=== PATIENT | male | born 1960 | race Caucasian/White ===

== ENCOUNTER 2020-01-04 09:08 | Outpatient (REF) | payer BC, SELFPAY ==
[2020-01-04 10:11] LABS: MANUAL DIFF FLAG NO
[2020-01-04 10:25] LABS: Basophils Percent Auto 0.6 % (0-2); Eosinophils Absolute Auto 0.2 X10*3/uL (0.0-0.4); Eosinophils Percent Auto 3.6 % (0-4); Hematocrit 47.1 % (42-52); Hemoglobin 15.9 g/dl (14.0-18.0); Imm Gran Abs Auto 0.01 X10*3/uL (0.00-0.03); Imm Gran Pct Auto 0.2 % (0.0-0.4); Lymphocytes Absolute Auto 1.3 X10*3/uL (1.2-4.9); Lymphocytes Percent Auto 27.9 % (20-40); Mean Corpuscular HGB Conc 33.8 g/dl (31.0-36.0); Mean Corpuscular Hemoglobin 31.4 pg (27.0-33.0); Mean Corpuscular Volume 92.9 fL (80-98); Monocytes Absolute Auto 0.4 X10*3/uL (0.1-1.2); Monocytes Percent Auto 9.2 % (2-11); Neutrophils Absolute Auto 2.8 X10*3/uL (2.0-8.3); Neutrophils Percent Auto 58.5 % (45-73); Platelet Count 158 X10*3/uL (160-400); Red Blood Count 5.07 X10*6/uL (4.60-5.80); Red Cell Distribution Width 12.4 % (11.0-16.0); White Blood Count 4.8 X10*3/uL (4.8-10.8)
[2020-01-04 11:00] LABS: Alanine Aminotransferase 46 U/L (0-40); Albumin Level 4.4 g/dL (3.5-5.0); Alkaline Phosphatase 64 U/L (39-117); Anion Gap 10 (12-20); Aspartate Amino Transferase 25 U/L (5-37); Blood Urea Nitrogen 13 mg/dL (9-16); Calcium 8.8 mg/dL (8.4-10.2); Carbon Dioxide 30 mmol/L (22-29); Chloride 105 mmol/L (96-108); Cholesterol 149 mg/dL; Estimated Glomerular Filt Rate > 60; Glucose Fasting 83 mg/dL (60-99); HDL Cholesterol 48 mg/dL; LDL Cholesterol Calculated 75 mg/dl; Potassium 4.3 mmol/l (3.3-5.1); Sodium 141 mmol/L (135-145); Total Protein 6.6 g/dL (6.5-8.0); Triglycerides 132 mg/dL
[2020-01-04 11:24] LABS: Free T4 (Free Thyroxine) 1.33 ng/dL (0.71-1.85); Thyroid Stimulating Hormone 0.24 uIU/mL (0.32-4.0)
== END 2020-01-04 09:09 | disposition home or self-care (01) ==
LOC: HO.10HDL 09:08
PROVIDERS: Visit Provider Internal Medicine
DX: E78.00 Pure hypercholesterolemia, unspecified (principal); E03.9 Hypothyroidism, unspecified
CPT/HCPCS: 36415; 80053; 80061; 84439; 84443; 85025

== ENCOUNTER 2020-05-26 06:14 | Outpatient (REF) | payer OTHER, SELFPAY ==
[2020-05-26 08:17] LABS: MANUAL DIFF FLAG NO
[2020-05-26 08:36] LABS: Basophils Percent Auto 0.7 % (0-2); Eosinophils Absolute Auto 0.2 X10*3/uL (0.0-0.4); Eosinophils Percent Auto 4.3 % (0-4); Hematocrit 46.7 % (42-52); Hemoglobin 15.6 g/dl (14.0-18.0); Imm Gran Abs Auto 0.01 X10*3/uL (0.00-0.03); Imm Gran Pct Auto 0.2 % (0.0-0.4); Lymphocytes Absolute Auto 1.6 X10*3/uL (1.2-4.9); Lymphocytes Percent Auto 30.5 % (20-40); Mean Corpuscular HGB Conc 33.4 g/dl (31.0-36.0); Mean Corpuscular Hemoglobin 31.4 pg (27.0-33.0); Mean Platelet Volume 10.5 fL (9.4-12.4); Monocytes Absolute Auto 0.5 X10*3/uL (0.1-1.2); Monocytes Percent Auto 8.6 % (2-11); Neutrophils Percent Auto 55.7 % (45-73); Platelet Count 188 X10*3/uL (160-400); Red Blood Count 4.97 X10*6/uL (4.60-5.80); Red Cell Distribution Width 12.4 % (11.0-16.0); White Blood Count 5.4 X10*3/uL (4.8-10.8)
[2020-05-26 08:57] LABS: Alanine Aminotransferase 41 U/L (0-40); Albumin Level 4.4 g/dL (3.5-5.0); Alkaline Phosphatase 66 U/L (39-117); Anion Gap 12 (12-20); Aspartate Amino Transferase 24 U/L (5-37); Blood Urea Nitrogen 17 mg/dL (9-16); Calcium 8.8 mg/dL (8.4-10.2); Carbon Dioxide 29 mmol/L (22-29); Chloride 107 mmol/L (96-108); Cholesterol 159 mg/dL; Estimated Glomerular Filt Rate > 60; Glucose Fasting 89 mg/dL (60-99); HDL Cholesterol 45 mg/dL; LDL Cholesterol Calculated 91 mg/dl; Potassium 4.4 mmol/L (3.3-5.1); Sodium 144 mmol/L (135-145); Total Protein 6.7 g/dL (6.5-8.0); Triglycerides 115 mg/dL
[2020-05-26 09:07] LABS: Free T4 (Free Thyroxine) 1.03 ng/dL (0.71-1.85); Thyroid Stimulating Hormone 0.91 uIU/mL (0.32-4.0)
== END 2020-05-26 06:15 | disposition home or self-care (01) ==
LOC: HO.LAB 06:14
PROVIDERS: PCP Internal Medicine; Visit Provider Internal Medicine
DX: I25.10 Atherosclerotic heart disease of native coronary artery without angina pectoris (principal); E78.00 Pure hypercholesterolemia, unspecified; E03.9 Hypothyroidism, unspecified
CPT/HCPCS: 36415; 80053; 80061; 84439; 84443; 85025

== ENCOUNTER 2020-09-30 23:54 | Emergency (ER) | payer OTHER, SELFPAY ==
--- NOTE | ~2020-09-30 | CT_ITS ---
EXAMINATION: CT ABDOMEN AND PELVIS WITHOUT CONTRAST CLINICAL INFORMATION: Left flank pain COMPARISON: None TECHNIQUE: Multidetector volumetric imaging was performed from the superior aspect of the liver through the pubic symphysis. Sagittal and coronal reformatted images were obtained on the technologist's workstation. This CT examination was performed using dose optimization techniques as appropriate, variously including the following: *Automated exposure control *Adjustment of mA and/or kV according to patient size (this includes techniques or standardized protocols for targeted exams where dose is matched to indication/reason for exam; i.e. extremities or head) *Use of iterative reconstruction technique DLP: 546 mGy-cm FINDINGS: LUNG BASES: The visualized lung bases are unremarkable. LIVER, GALLBLADDER, AND BILIARY TREE: The liver is normal in size, shape, and attenuation. No focal hepatic lesion or biliary ductal dilatation is present. The gallbladder is unremarkable with no evidence of radiopaque gallstones, gallbladder wall thickening, or obvious pericholecystic inflammatory changes. PANCREAS: Unremarkable. SPLEEN: Unremarkable. ADRENAL GLANDS: Unremarkable. KIDNEYS AND URETERS: Mild left pelviectasis and perinephric stranding mild left hydroureter leading up to the bladder. No urinary calculi. Right kidney unremarkable. BLADDER: Unremarkable. GASTROINTESTINAL TRACT: The small and large bowel are unremarkable. The appendix is unremarkable. ABDOMINAL WALL: No significant hernia is appreciated. LYMPH NODES: Normal. VASCULAR: Unremarkable. PELVIC VISCERA: Unremarkable. OSSEOUS STRUCTURES: Unremarkable. CT/CT abdomen pelvis wo con IMPRESSION: Mild left pelviectasis and hydroureter associated with mild peripelvic and periureteral fat stranding. No urinary calculi are identified. Suspect recently passed stone. From an imaging standpoint alone, ureteritis/pyelitis could also have this appearance. This critical result was discussed with Jennifer Ventura NP at 10/01/2020 12:47 AM and it was ascertained that the content and urgency of the report was understood at the time of direct communication.
--- NOTE | 2020-10-01 00:06 | ED_ITS ---
HPI - Abdominal Pain General Chief Complaint: Abdominal Pain Stated Complaint: left flank pain Source: patient and EMS Mode of arrival: EMS Limitations: no limitations History of Present Illness HPI narrative: 60-year-old male with past medical history of triple bypass presents via EMS for 10/10 left-sided flank pain. States the pain started at 9:00 p.m., he became diaphoretic, and felt almost syncopal. Stated that when he got here that the pain drastically decreased from 10 to 4/10 pain. He does not have a prior history of kidney stones, does not report fevers, chills, chest pain or pressure, palpitations, abdominal distention, dysuria, nausea, vomiting, diarrhea, constipation, or edema. MD elicited complaint: abdominal pain and flank pain Onset (ago): hour(s) (Several hours prior to arrival) Pain Consistency: constant Location: L flank Severity: severe Pain scale (0-10): 10 Quality: stabbing, aching and sharp Radiation: none Migration to: no migration Exacerbating factors: movement Relieving factors: nothing Associated symptoms: denies other symptoms Related Data Previous Rx's Medication Instructions Recorded phenazopyridine 200 mg tablet 200 mg PO TID PRN #6 tab 10/01/20 (Pyridium) Allergies Allergy/AdvReac Type Severity Reaction Status Date / Time penicillin V Allergy Unknown Rash Verified 10/01/20 00:17 acetaminophen [From Percocet] AdvReac Vomiting Verified 10/01/20 00:17 oxycodone [From Percocet] AdvReac Vomiting Verified 10/01/20 00:17 Review of Systems Review of Systems Constitutional: No Fever, No Chills ENT/Mouth: No sore throat Eyes: No Eye Pain, No Swelling, No Redness Cardiovascular: No Chest Pain, No SOB Respiratory: No Cough, No Sputum, No Wheezing Gastrointestinal: No Nausea, positive Vomiting, No Diarrhea, no abdominal pain Genitourinary: No Dysuria, no urinary frequency, positive Hematuria, positive Flank Pain, no hesitancy Musculoskeletal: No joint pain, No Myalgias Skin: No Skin Lesions, No rash Neuro: No Weakness, No Numbness, No Headache Psych: No Anxiety/Panic, No Depression Heme/Lymph: No Bruising, No Lymphadenopathy Endocrine: No Polyuria, No Polydipsia Yes all other systems are reviewed and are negative Physical Exam Vital Signs: Vital Signs: Last Vital Signs Temp 97.7 F 10/01/20 00:11 Pulse 84 10/01/20 00:11 Resp 18 10/01/20 00:11 BP 126/75 10/01/20 00:11 Pulse Ox 98 10/01/20 00:11 Body Mass Index 23.7 Appearance: Alert. Oriented X3. Mild distress. Eyes: Pupils equal, round and reactive to light. Sclera nonicteric ENT: Pharynx normal. Moist mucous membranes Neck: Normal inspection. Neck supple. CVS: Normal heart rate and rhythm. Pulses normal. Respiratory: No respiratory distress. Breath sounds normal. Abdomen: Soft and nontender. Positive CVA tenderness to left side. Skin: Skin warm and dry. Normal skin color. Normal skin turgor. Extremities: No lower extremity edema. Moves all extremities against resistance. Neuro: No motor deficit. No sensory deficit. Cranial nerves 2-12 intact. Course Course Course Narrative: 60-year-old male presents with 10/10 left flank pain. Started at 9:00 p.m.. No history of kidney stones. Stated that once he got to this facility via EMS that the pain decreased suddenly from 10 to 4/10. Patient's urine is dark, appears to have heme. Physical exam positive for left-sided CVA tenderness. High suspicion for kidney stone, less likely to be acute abdomen as abdominal palpation is negative. Will give fluids, and Toradol. CT scan of abdomen pending. 12:47 discussion with Radiology, high suspicion for a passed kidney stone, will correlate with labs and urinalysis. No indication of pyelonephritis or sepsis at this time. Most likely a passed kidney stone. Will give Pyridium for bladder spasms. Will have patient follow- up with primary care. Patient verbalized understanding of and agrees to plan of care discharge home. MDM - Abdominal Pain Differential Diagnosis Differential diagnosis: Likely abdominal pain, acute appendicitis, calculus of kidney and renal colic Medical Records Attestation: I reviewed the patient's medical records. Lab Data Attestation: I reviewed the patient's lab results. Result diagrams: 10/01/20 00:24 10/01/20 00:24 Labs: Lab Results 10/01/20 10/01/20 10/01/20 Range/Units 00:24 00:24 01:29 WBC 7.1 (4.8-10.8) X10*3/uL RBC 4.49 L (4.60-5.80) X10*6/uL Hgb 14.2 (14.0-18.0) g/dl Hct 41.7 L (42-52) % MCV 92.9 (80-98) fL MCH 31.6 (27.0-33.0) pg MCHC 34.1 (31.0-36.0) g/dl RDW 12.5 (11.0-16.0) % Plt Count 151 L (160-400) X10*3/uL MPV 10.5 (9.4-12.4) fL Immature Gran % (Auto) 0.4 (0.0-0.4) % Neut % (Auto) 83.0 H (45-73) % Lymph % (Auto) 10.7 L (20-40) % [place] % (Auto) 4.6 (2-11) % Eos % (Auto) 1.0 (0-4) % Baso % (Auto) 0.3 (0-2) % Lymph # (Auto) 0.8 L (1.2-4.9) X10*3/uL [place] # (Auto) 0.3 (0.1-1.2) X10*3/uL Eos # (Auto) 0.1 (0.0-0.4) X10*3/uL Baso # (Auto) 0.0 (0.0-0.2) X10*3/uL Abs Immat Gran (auto) 0.03 (0.00-0.03) X10*3/uL Absolute Neuts (auto) 5.9 (2.0-8.3) X10*3/uL Absolute Nucleated RBC 0.000 (0.0-0.012) X10*3/uL Nucleated RBC % (auto) 0.0 (0.0-0.2) /100WBC Sodium 141 (135-145) mmol/L Potassium 3.9 (3.3-5.1) mmol/L Chloride 105 (96-108) mmol/L Carbon Dioxide 27 (22-29) mmol/L Anion Gap 13 (12-20) BUN 13 (9-16) mg/dL Creatinine 1.09 (0.5-1.4) mg/dL Estim Creat Clear Calc 76.7 Estimated GFR > 60 Random Glucose 99 (60-115) mg/dL Calcium 9.1 (8.4-10.2) mg/dL Urine Color YELLOW Urine Appearance HAZY Urine pH 5.5 (5.0-8.0) Ur Specific [place] >= 1.030 H (1.005-1.025) Urine Protein 1+ H (NEG-TRACE) MG/DL Urine Glucose (UA) NEG (NEG) MG/DL Urine Ketones 5 (NEG) MG/DL Urine Blood 3+ H (NEG) Urine Nitrite NEG (NEG) Ur Leukocyte Esterase NEG (NEG) Urine RBC 76-150 H (0) /HPF Urine WBC 0-2 (0-4) /HPF Ur Squamous Epith Cells 2+ /LPF Amorphous Sediment 2+ /LPF Urine Bacteria NONE /LPF Imaging Data CT scan - abdomen: Attestation: I personally reviewed and interpreted this imaging study as follows: Radiologist's impression: FINDINGS: LUNG BASES: The visualized lung bases are unremarkable.? LIVER, GALLBLADDER, AND BILIARY TREE: The liver is normal in size, shape, and attenuation. No focal hepatic lesion or biliary ductal dilatation is present. The gallbladder is unremarkable with no evidence of radiopaque gallstones, gallbladder wall thickening, or obvious pericholecystic inflammatory changes.? PANCREAS: Unremarkable.? SPLEEN: Unremarkable.? ADRENAL GLANDS: Unremarkable.? KIDNEYS AND URETERS: Mild left pelviectasis and perinephric stranding mild left hydroureter leading up to the bladder. No urinary calculi. Right kidney unremarkable.? BLADDER: Unremarkable.? GASTROINTESTINAL TRACT: The small and large bowel are unremarkable. The appendix is unremarkable.? ABDOMINAL WALL: No significant hernia is appreciated.? LYMPH NODES: Normal. VASCULAR: Unremarkable. PELVIC VISCERA: Unremarkable.? OSSEOUS STRUCTURES: Unremarkable.? CT/CT abdomen pelvis wo con IMPRESSION: Mild left pelviectasis and hydroureter associated with mild peripelvic and periureteral fat stranding. No urinary calculi are identified. Suspect recently passed stone. From an imaging standpoint alone, ureteritis/pyelitis could also have this appearance.? ? This critical result was discussed with Jennifer Ventura NP at 10/01/2020 12:47 AM and it was ascertained that the content and urgency of the report was understood at the time of direct communication. Discharge Plan Discharge Clinical Impression: Kidney stone on left side Patient Disposition: Home, Self-Care Instructions: Kidney Stones (ED), Flank Pain (ED) Additional Instructions: You were evaluated for left-sided flank pain. CT scan of the abdomen indicates it is findings suspicious for recently passed kidney stone. Urinalysis was negative for bacteria positive for hematuria, again consistent with kidney stone. Please take Pyridium as needed for bladder spasms and pain. If you are unable to void, this may indicate a blockage in the urethra. Please return to the emergency department for evaluations if you are unable to pass urine. Thank you for choosing this emergency department for evaluation. Please follow-up with primary care physician as needed. Return to the emergency department for any new, concerning, or worsening symptoms. Prescriptions: New phenazopyridine [Pyridium] 200 mg tablet 200 mg PO TID PRN (Reason: pain) Qty: 6 RF: 0 PMFSH Past Medical History Attestation statement: The following information was validated with the patient. Source: old records reviewed Medical History (Updated 10/01/20 @ 01:54 by Jennifer Ventura NP) Herniated disc HTN (hypertension) Surgical History H/O heart surgery Social History Social History Advance Directives: No
[2020-10-01 00:11] VITALS: BP 126/75; PULSE 84; RESP 18; TEMP 36.5; O2SAT 98; BMI 23.7
[2020-10-01 00:15] VITALS: BP 140/70; PULSE 70; O2SAT 98
[2020-10-01 00:43] LABS: MANUAL DIFF FLAG NO
[2020-10-01 00:44] LABS: Basophils Percent Auto 0.3 % (0-2); Eosinophils Absolute Auto 0.1 X10*3/uL (0.0-0.4); Hematocrit 41.7 % (42-52); Hemoglobin 14.2 g/dl (14.0-18.0); Imm Gran Abs Auto 0.03 X10*3/uL (0.00-0.03); Imm Gran Pct Auto 0.4 % (0.0-0.4); Lymphocytes Absolute Auto 0.8 X10*3/uL (1.2-4.9); Lymphocytes Percent Auto 10.7 % (20-40); Mean Corpuscular HGB Conc 34.1 g/dl (31.0-36.0); Mean Corpuscular Hemoglobin 31.6 pg (27.0-33.0); Mean Corpuscular Volume 92.9 fL (80-98); Mean Platelet Volume 10.5 fL (9.4-12.4); Monocytes Absolute Auto 0.3 X10*3/uL (0.1-1.2); Monocytes Percent Auto 4.6 % (2-11); Neutrophils Absolute Auto 5.9 X10*3/uL (2.0-8.3); Platelet Count 151 X10*3/uL (160-400); Red Blood Count 4.49 X10*6/uL (4.60-5.80); Red Cell Distribution Width 12.5 % (11.0-16.0); White Blood Count 7.1 X10*3/uL (4.8-10.8)
[2020-10-01 01:08] LABS: Anion Gap 13 (12-20); Blood Urea Nitrogen 13 mg/dL (9-16); Calcium 9.1 mg/dL (8.4-10.2); Carbon Dioxide 27 mmol/L (22-29); Chloride 105 mmol/L (96-108); Creatinine Clr Calc Pharmacy 76.7; Estimated Glomerular Filt Rate > 60; Glucose Random 99 mg/dL (60-115); Potassium 3.9 mmol/L (3.3-5.1); Sodium 141 mmol/L (135-145)
[2020-10-01] MEDS: 0.9 % Sodium Chloride 1,000 ML 999 ML IVCONT (01:30)
[2020-10-01 01:40] LABS: Appearance Urine HAZY; Color Urine YELLOW; Glucose Urine UA NEG (NEG); Leukocyte Esterase Urine NEG (NEG); Nitrite Urine NEG (NEG); PH 5.5 (5.0-8.0); Specific Gravity - Urine >= 1.030 (1.005-1.025); UACC Culture Trigger NO; Urine Blood 3+ (NEG); Urine Ketones 5 MG/DL (NEG); Urine Protein 1+ MG/DL (NEG-TRACE)
[2020-10-01 02:02] LABS: Amorphous Sediment Urine 2+ /LPF; Squamous Epithelial Cell Urine 2+ /LPF; WBC Urine 0-2 /HPF (0-4)
[2020-10-01] MEDS: Phenazopyridine HCL 200 MG TABLET PO (02:29)
== END 2020-10-01 02:48 | disposition home or self-care (01) ==
PROVIDERS: Nurse Practitioner Family; Emergency Provider Emergency Medicine; PCP Internal Medicine
DX: N20.0 Calculus of kidney (principal); I10 Essential (primary) hypertension
CPT/HCPCS: 36415; 74176; 80048; 81001; 85025; 96361; 96374; 99283; 99284

== ENCOUNTER 2021-01-24 09:46 | Outpatient (REF) | payer OTHER, SELFPAY ==
[2021-01-24 10:21] LABS: MANUAL DIFF FLAG NO
[2021-01-24 10:25] LABS: Basophils Percent Auto 0.7 % (0-2); Eosinophils Absolute Auto 0.1 X10*3/uL (0.0-0.4); Eosinophils Percent Auto 2.3 % (0-4); Hematocrit 46.5 % (42.0-52.0); Hemoglobin 15.3 g/dl (14.0-18.0); Imm Gran Abs Auto 0.01 X10*3/uL (0.00-0.03); Imm Gran Pct Auto 0.2 % (0.0-0.4); Lymphocytes Absolute Auto 1.2 X10*3/uL (1.2-4.9); Lymphocytes Percent Auto 21.9 % (20-40); Mean Corpuscular HGB Conc 32.9 g/dl (31.0-36.0); Mean Corpuscular Hemoglobin 31.2 pg (27.0-33.0); Mean Corpuscular Volume 94.7 fL (80.0-98.0); Mean Platelet Volume 10.8 fL (9.4-12.4); Monocytes Absolute Auto 0.5 X10*3/uL (0.1-1.2); Neutrophils Absolute Auto 3.8 x10*3/uL (2.0-8.3); Neutrophils Percent Auto 66.9 % (45-73); Platelet Count 148 X10*3/uL (160-400); Red Blood Count 4.91 X10*6/uL (4.60-5.80); Red Cell Distribution Width 12.3 % (11.0-16.0); White Blood Count 5.6 X10*3/uL (4.8-10.8)
[2021-01-24 10:58] LABS: Alanine Aminotransferase 29 U/L (0-40); Albumin Level 4.5 g/dL (3.5-5.0); Alkaline Phosphatase 68 U/L (39-117); Anion Gap 9 (12-20); Aspartate Amino Transferase 22 U/L (5-37); Bilirubin Total 0.6 mg/dL (0.0-1.0); Blood Urea Nitrogen 11 mg/dL (9-16); Calcium 9.7 mg/dL (8.4-10.2); Carbon Dioxide 31 mmol/L (22-29); Chloride 106 mmol/L (96-108); Estimated Glomerular Filt Rate > 60; Glucose Fasting 90 mg/dL (60-99); Potassium 4.3 mmol/L (3.3-5.1); Sodium 142 mmol/L (135-145); Total Protein 6.7 g/dL (6.5-8.0)
[2021-01-24 11:20] LABS: Prostate Specific Antigen Scr 3.28 ng/mL (<0.05-4.0)
[2021-01-24 13:40] LABS: Appearance Urine CLEAR; Color Urine YELLOW; Glucose Urine UA NEG (NEG); Leukocyte Esterase Urine NEG (NEG); Nitrite Urine NEG (NEG); Urine Blood NEG (NEG); Urine Ketones NEG (NEG); Urine Protein NEG (NEG-TRACE)
== END 2021-01-24 09:47 | disposition home or self-care (01) ==
LOC: HO.10HDL 09:46
PROVIDERS: Visit Provider Internal Medicine
DX: Z00.00 Encounter for general adult medical examination without abnormal findings (principal); Z12.5 Encounter for screening for malignant neoplasm of prostate
CPT/HCPCS: 36415; 80053; 81003; 84153; 85025

== ENCOUNTER 2021-07-12 09:47 | Outpatient (REF) | payer OTHER, SELFPAY ==
[2021-07-12 10:32] LABS: MANUAL DIFF FLAG NO
[2021-07-12 10:42] LABS: Basophils Percent Auto 0.6 % (0-2); Eosinophils Absolute Auto 0.1 X10*3/uL (0.0-0.4); Eosinophils Percent Auto 2.6 % (0-4); Hematocrit 47.5 % (42.0-52.0); Hemoglobin 15.8 g/dl (14.0-18.0); Imm Gran Abs Auto 0.01 X10*3/uL (0.00-0.03); Imm Gran Pct Auto 0.2 % (0.0-0.4); Lymphocytes Absolute Auto 1.2 X10*3/uL (1.2-4.9); Lymphocytes Percent Auto 23.8 % (20-40); Mean Corpuscular HGB Conc 33.3 g/dl (31.0-36.0); Mean Corpuscular Volume 93.3 fL (80.0-98.0); Mean Platelet Volume 10.8 fL (9.4-12.4); Monocytes Absolute Auto 0.8 X10*3/uL (0.1-1.2); Neutrophils Absolute Auto 2.9 x10*3/uL (2.0-8.3); Neutrophils Percent Auto 57.8 % (45-73); Platelet Count 132 X10*3/uL (160-400); Red Blood Count 5.09 X10*6/uL (4.60-5.80); Red Cell Distribution Width 12.4 % (11.0-16.0); White Blood Count 5.1 X10*3/uL (4.8-10.8)
[2021-07-12 11:15] LABS: Alanine Aminotransferase 38 U/L (0-40); Albumin Level 4.4 g/dL (3.5-5.0); Alkaline Phosphatase 77 U/L (39-117); Anion Gap 13 (12-20); Aspartate Amino Transferase 24 U/L (5-37); Bilirubin Total 0.8 mg/dL (0.0-1.0); Blood Urea Nitrogen 13 mg/dL (9-16); Calcium 9.5 mg/dL (8.4-10.2); Carbon Dioxide 29 mmol/L (22-29); Chloride 104 mmol/L (96-108); Estimated Glomerular Filt Rate > 60; Glucose Random 60 mg/dL (60-115); Potassium 4.8 mmol/L (3.3-5.1); Sodium 141 mmol/L (135-145); Total Protein 6.8 g/dL (6.5-8.0)
[2021-07-12 11:23] LABS: Free T4 (Free Thyroxine) 1.09 ng/dL (0.71-1.85); PSA,Total (Free>4and<10) 2.99 ng/mL (0.00-4.00); Thyroid Stimulating Hormone 0.88 uIU/mL (0.32-4.0)
== END 2021-07-12 09:48 | disposition home or self-care (01) ==
LOC: HO.10HDL 09:47
PROVIDERS: Visit Provider Internal Medicine
DX: Z12.5 Encounter for screening for malignant neoplasm of prostate (principal); E03.9 Hypothyroidism, unspecified; R35.1 Nocturia; I25.10 Atherosclerotic heart disease of native coronary artery without angina pectoris
CPT/HCPCS: 36415; 80053; 84153; 84439; 84443; 85025

== ENCOUNTER 2022-07-30 07:50 | Outpatient (REF) | payer OTHER, SELFPAY ==
[2022-07-30 10:58] LABS: MANUAL DIFF FLAG NO
[2022-07-30 11:07] LABS: Appearance Urine Clear; Color Urine Yellow; Glucose Urine UA Negative (Negative); Leukocyte Esterase Urine Negative (Negative); Nitrite Urine Negative (Negative); PH 5.5 (5.0-9.0); Urine Blood Negative (Negative); Urine Ketones Negative (Negative); Urine Protein Negative (Neg-Trace)
[2022-07-30 11:22] LABS: Basophils Percent Auto 0.9 % (0-2); Eosinophils Absolute Auto 0.2 X10*3/uL (0.0-0.4); Eosinophils Percent Auto 3.9 % (0-4); Hematocrit 44.7 % (42.0-52.0); Hemoglobin 14.8 g/dl (14.0-18.0); Lymphocytes Absolute Auto 1.4 X10*3/uL (1.2-4.9); Lymphocytes Percent Auto 33.2 % (20-40); Mean Corpuscular HGB Conc 33.1 g/dl (31.0-36.0); Mean Corpuscular Hemoglobin 31.2 pg (27.0-33.0); Mean Corpuscular Volume 94.1 fL (80.0-98.0); Mean Platelet Volume 11.1 fL (9.4-12.4); Monocytes Absolute Auto 0.4 X10*3/uL (0.1-1.2); Neutrophils Absolute Auto 2.3 x10*3/uL (2.0-8.3); Platelet Count 158 X10*3/uL (160-400); Red Blood Count 4.75 X10*6/uL (4.60-5.80); Red Cell Distribution Width 12.5 % (11.0-16.0); White Blood Count 4.3 X10*3/uL (4.8-10.8)
[2022-07-30 12:14] LABS: Alanine Aminotransferase 24 U/L (0-40); Albumin Level 4.1 g/dL (3.5-5.0); Alkaline Phosphatase 67 U/L (39-117); Anion Gap 11 (12-20); Aspartate Amino Transferase 20 U/L (5-37); Bilirubin Total 0.7 mg/dL (0.0-1.0); Blood Urea Nitrogen 16 mg/dL (9-16); Calcium 9.2 mg/dL (8.4-10.2); Carbon Dioxide 30 mmol/L (22-29); Chloride 108 mmol/L (96-108); Estimated Glomerular Filt Rate > 60; Free T4 (Free Thyroxine) 1.13 ng/dL (0.71-1.85); Glucose Random 106 mg/dL (60-115); Potassium 4.1 mmol/L (3.3-5.1); Prostate Specific Antigen 3.22 ng/mL (<0.05-4.0); Sodium 145 mmol/L (135-145); Thyroid Stimulating Hormone 0.48 uIU/mL (0.32-4.0); Total Protein 6.3 g/dL (6.5-8.0)
== END 2022-07-30 07:51 | disposition home or self-care (01) ==
LOC: HO.10HDL 07:50
PROVIDERS: Visit Provider Internal Medicine
DX: Z00.00 Encounter for general adult medical examination without abnormal findings (principal); E03.9 Hypothyroidism, unspecified; Z12.5 Encounter for screening for malignant neoplasm of prostate
CPT/HCPCS: 36415; 80053; 81003; 84153; 84439; 84443; 85025

== ENCOUNTER 2023-02-15 07:39 | Outpatient (REF) | payer OTHER, SELFPAY ==
[2023-02-15 11:09] LABS: Alanine Aminotransferase 32 U/L (0-40); Albumin Level 4.4 g/dL (3.5-5.0); Alkaline Phosphatase 71 U/L (39-117); Anion Gap 12 (12-20); Aspartate Amino Transferase 28 U/L (5-37); Bilirubin Total 1.2 mg/dL (0.0-1.0); Blood Urea Nitrogen 17 mg/dL (9-16); Calcium 9.4 mg/dL (8.4-10.2); Carbon Dioxide 28 mmol/L (22-29); Chloride 106 mmol/L (96-108); Cholesterol 134 mg/dL (<200); Estimated Glomerular Filt Rate > 60; Glucose Fasting 89 mg/dL (60-99); HDL Cholesterol 52 mg/dL (>40); LDL Cholesterol Calculated 66 mg/dL (<100); Potassium 3.8 mmol/L (3.3-5.1); Sodium 142 mmol/L (135-145); Total Protein 7.1 g/dL (6.5-8.0); Triglycerides 83 mg/dL (<150)
[2023-02-15 11:21] LABS: Free T4 (Free Thyroxine) 0.95 ng/dL (0.71-1.85); Thyroid Stimulating Hormone 0.94 uIU/mL (0.32-4.0)
== END 2023-02-15 07:40 | disposition home or self-care (01) ==
LOC: HO.10HDL 07:39
PROVIDERS: Visit Provider Internal Medicine
DX: I25.10 Atherosclerotic heart disease of native coronary artery without angina pectoris (principal); I10 Essential (primary) hypertension; E78.00 Pure hypercholesterolemia, unspecified; E03.9 Hypothyroidism, unspecified
CPT/HCPCS: 36415; 80053; 80061; 84439; 84443

== ENCOUNTER 2023-06-12 07:46 | Outpatient (REF) | payer OTHER, SELFPAY ==
[2023-06-12 11:20] LABS: Anion Gap 10 (12-20); Blood Urea Nitrogen 14 mg/dL (9-16); Calcium 9.1 mg/dL (8.4-10.2); Carbon Dioxide 29 mmol/L (22-29); Chloride 107 mmol/L (96-108); Estimated Glomerular Filt Rate > 60; Glucose Random 113 mg/dL (60-115); Potassium 3.8 mmol/L (3.3-5.1); Sodium 142 mmol/L (135-145)
[2023-06-12 11:32] LABS: Prostate Specific Antigen Scr 4.16 ng/mL (<0.05-4.0)
== END 2023-06-12 07:47 | disposition home or self-care (01) ==
LOC: HO.10HDL 07:46
PROVIDERS: Visit Provider Internal Medicine
DX: Z12.5 Encounter for screening for malignant neoplasm of prostate (principal); I25.10 Atherosclerotic heart disease of native coronary artery without angina pectoris; R35.1 Nocturia
CPT/HCPCS: 36415; 80048; 84153

== ENCOUNTER 2023-08-21 07:38 | Outpatient (REF) | payer OTHER, SELFPAY ==
[2023-08-21 11:17] LABS: PSA,Total (Free>4and<10) 4.23 ng/mL (0.00-4.00)
[2023-08-22 11:03] LABS: Free Prostate Spec Ag 0.8 ng/mL; Percent Free Prostate Spec Ag 19 % (calc) (>25); Prostate Specific Ag Total 4.2 ng/mL (< OR = 4.0)
== END 2023-08-21 07:39 | disposition home or self-care (01) ==
LOC: HO.10HDL 07:38
PROVIDERS: Visit Provider Internal Medicine
DX: R97.20 Elevated prostate specific antigen [PSA] (principal); Z12.5 Encounter for screening for malignant neoplasm of prostate
CPT/HCPCS: 36415; 84153; 84154

== ENCOUNTER 2023-08-22 09:03 | Outpatient (AMB) | payer OTHER, SELFPAY ==
--- NOTE | 2023-08-22 09:08 | MHC.OFFVIS ---
Intake Visit Reasons: elevated PSA Intake Note: Jh is a 63 year old male who presents today as a new patient for a evaluation for his elevated PSA. Allergies penicillin V Allergy (Unknown, Verified 08/22/23 09:09) Rash acetaminophen [From Percocet] Adverse Reaction (Verified 08/22/23 09:09) Vomiting oxycodone [From Percocet] Adverse Reaction (Verified 08/22/23 09:09) Vomiting Medication List - Last Reconciled 08/22/23 by Chapincito Hernandez MD aspirin 81 mg PO DAILY atorvastatin 80 mg PO DAILY levothyroxine (Synthroid) 100 mcg PO DAILY losartan 12.5 mg PO DAILY HPI Comments Details: Jh is here for evaluation for elevated PSA, he states his father had prostate cancer and had radiation therapy. PMH - CAD, takes aspirin daily. He denies LUTS. I have discussed that elevated PSA may indicate changes in the prostate including benign enlargement, cancer and an inflammatory condition. I have discussed doing a biopsy has risks and that management in early detection of prostate cancer may include active surveillance. Discussed Transrectal Ultrasound guided biopsy of the prostate. Discussed risks to include but not limited to pain, blood in stool, urine and semen, septicemia, need to repeat biopsy. Pt declined prostate exam. PSA--07/12/2021--2.99, 07/30/2022--3.22, 06/07/23--4.16, 08/21/2023--4.23 Plan schedule prostate biopsy with Dr. Delcid. [facility] Medical History HTN (hypertension) Herniated disc Surgical History H/O heart surgery Review of Systems Const All systems reviewed & are unremarkable except as noted in HPI and below Reports no additional complaints Eyes Reports no additional complaints ENT Reports no additional complaints Card Reports no additional complaints Resp Reports no additional complaints GI Reports no additional complaints Reports as per HPI Musc Reports no additional complaints Skin/Breast Reports system reviewed and no additional complaints, except as documented Neuro Reports no additional complaints Psych Reports no additional complaints Endo Reports no additional complaints Ryan/Lymph Reports no additional complaints Aller/Immun Reports no additional complaints Physical Exam Const General: healthy appearing, no acute distress and well developed Orientation/consciousness: patient oriented x3 HEENT Head: Yes normocephalic and Yes atraumatic Eyes Conjunctivae: conjunctivae normal Neck Neck: Yes normal visual inspection Chest Chest palpation & inspection: normal inspection of the chest Resp Effort & Inspection: normal respiratory effort Cardio Jugular venous distension: no JVD GI Inspection: Yes normal to inspection Skin General skin exam: no rashes or lesions noted Neuro General: patient oriented x3 Extrem General: No pedal edema Psych Appearance: grossly normal Affect: normal affect Assessment & Plan Assessment & Plan (1) Elevated PSA: Code(s): R97.20 - Elevated prostate specific antigen [PSA] Category: Medical Plan schedule prostate biopsy with Dr. Delcid. Medications: Discontinued phenazopyridine (Pyridium) Discontinued Reason: Patient no longer taking 200 mg PO TID PRN 6 tabs 0RF pain Patient Instructions: The patient had an opportunity to ask questions regarding treatment plan. The patient expressed understanding and agreement with the above treatment plan. The patient is aware they should contact our office by phone for worsening of their current condition or the appearance of new symptoms. Compliance is encouraged with any medications and followup testing that is ordered. It is a privilege to be allowed the opportunity to participate in the urologic care of your patient. If you have any questions or concerns regarding treatment for the above conditions please do not hesitate to contact me. The office telephone contact is [phone]. This note is constructed in part using voice recognition software. While every effort has been made to ensure accuracy production support analyst errors may have been included. Yours sincerely, Chapincito Hernandez MD Coding Level of Care Code New Pt Level 4 (66991) Diagnoses Elevated PSA R97.20
== END 2023-08-22 10:03 | disposition home or self-care (01) ==
PROVIDERS: PCP Internal Medicine; Visit Provider Urology
DX: R97.20 Elevated prostate specific antigen [PSA] (principal)
CPT/HCPCS: 99204

== ENCOUNTER → 2023-08-22 09:03 | Outpatient (BNVA) | payer OTHER, SELFPAY | PROVIDERS: PCP Internal Medicine; Visit Provider Urology ==

== ENCOUNTER 2024-01-14 12:50 | Outpatient (AMB) | payer OTHER, SELFPAY ==
--- NOTE | 2024-01-14 12:53 | MHC.OFFVIS ---
Intake Visit Reasons: Discuss Prostate Biopsy Intake Note: Patient is present for Discussion on Prostate Biopsy Urology Med: None Antibiotic Allergies: Penicillins Blood Thinner: Aspirin LABS: 08/21/2023 -Total PSA: 4.2(H) - Free PSA: 0.8 - %Free PSA: 19 Patient wants to discuss alternative to Rectal Prostate Biopsy wants to discuss transperineal biopsy [facility] Nurse Practitioner Required: No Welding Instructor: Welding Instructor Present Accompanied by: Spouse Allergies penicillin V Allergy (Unknown, Verified 01/14/24 13:16) Rash acetaminophen [From Percocet] Adverse Reaction (Verified 01/14/24 13:16) Vomiting oxycodone [From Percocet] Adverse Reaction (Verified 01/14/24 13:16) Vomiting HPI Comments Details: Camilo is a pleasant male. Is a patient Dr. William. He is seen for the following urologic conditions - elevated PSA discussion regarding transrectal ultrasound-guided biopsy versus perineal biopsy in our area the local antibiotic biogram indicates E coli with less than 20% Bactrim resistance as such we do not have a problem with infection after prostate biopsy this is not the case in other parts of the country highlighted steps to the procedure PSA 08/18 4.2 family history prostate cancer father PFSH Medical History HTN (hypertension) Herniated disc Surgical History H/O heart surgery Review of Systems Const Denies chills and Denies fever(s) Card Reports no additional complaints and Denies syncope Resp Denies cough GI Denies abdominal pain and Denies heartburn Reports as per HPI and Denies change in libido Neuro Denies syncope Psych Denies change in libido Endo Denies change in libido Physical Exam Const General: cooperative, healthy appearing, comfortable and no acute distress Orientation/consciousness: patient oriented x3 HEENT Face and sinus: Yes normal facial exam Mouth: moist mucous membranes Neck Neck: Yes normal visual inspection, Yes full ROM and Yes trachea midline Chest Chest palpation & inspection: normal inspection of the chest Resp Effort & Inspection: normal respiratory effort, able to speak in complete sentences and no respiratory distress GI Inspection: Yes normal to inspection Rectal Exam - Male: Yes normal sphincter tone and Yes prostate normal Male General Exam: Yes normal external exam Penis: normal penis and circumcised Meatus: meatus normal Scrotum: scrotum normal Testes: Testes normal Back/Spine/Pelvis Cervical Spine: normal cervical lordosis Thoracic/Lumbar Spine: thoracic and lumbar spine normal to inspection Skin General skin exam: no rashes or lesions noted Neuro General: patient oriented x3, gait normal, tone normal and moves all extremities Extrem General: Yes normal to inspection and Yes capillary refill normal Assessment & Plan Assessment & Plan (1) Elevated PSA: Code(s): R97.20 - Elevated prostate specific antigen [PSA] Category: Medical Plan Risks and benefits regarding trans rectal ultrasound with prostate biopsy were discussed. Options of continued surveillance, no treatment and biopsy were offered. The risks include but are not limited to, urinary tract infection, sepsis, difficulty urinating, bleeding into the rectum or bladder that requires intervention and transfusion,and failure to diagnose prostate cancer. The patient understands the options and the risks involved. They wish to proceed. Printed information was provided to ensure he remains off anticoagulation for the appropriate length of time. He may require cardiology or PCP clearance. An antibiotic will be administered prior to, and following the procedure Medications: New ciprofloxacin HCl Take tablets day before, day of and day after biopsy 250 mg PO DAILY 3 tabs 0RF 3 days R97.20 - Elevated prostate specific antigen [PSA] Patient Instructions: Imaging studies, laboratory and physical exam results were discussed and reviewed in detail. No major barriers to patient understanding were identified. An opportunity to ask questions regarding the treatment plan was provided. All questions were answered. The patient expressed understanding and agreement with the above treatment plan. The patient is aware they should contact our office by phone for worsening of their current condition or the appearance of new urologic symptoms. Compliance is encouraged with any medications and followup testing that is ordered. It is a privilege to participate in the urologic care of your patient. If you have any questions or concerns regarding treatment for the above conditions, or other urologic issues, please do not hesitate to contact me. The office telephone contact is [phone]. This note is constructed using voice recognition software. While every effort has been made to ensure accuracy corn press operator errors may have been included. Yours sincerely, Dr Jimenez Delcid MD, [facility] - Urology Providers of Expert, Compassionate Care for the Genitourinary System Coding Level of Care Code Est Pt Level 4 (13808) Diagnoses Elevated PSA R97.20
== END 2024-01-14 13:44 | disposition home or self-care (01) ==
PROVIDERS: PCP Internal Medicine; Visit Provider Urology
DX: R97.20 Elevated prostate specific antigen [PSA] (principal)
CPT/HCPCS: 99214

== ENCOUNTER → 2024-01-14 12:50 | Outpatient (BNVA) | payer OTHER, SELFPAY | PROVIDERS: PCP Internal Medicine; Visit Provider Urology ==

== ENCOUNTER 2024-02-04 07:55 | Outpatient (REF) | payer OTHER, SELFPAY ==
--- NOTE | 2024-02-04 08:39 | P.OP_ITS ---
Operative Note Operative Note Date of Service: 02/04/24 Narrative: Preoperative diagnosis: Elevated PSA Postoperative diagnosis: Elevated PSA Procedure: 1. transrectal ultrasound measurement of prostate 2. transrectal ultrasound-guided pudendal nerve block 3. transrectal ultrasound-guided prostate biopsy 12 core Surgeon: Dr. Jimenez Delcid Anesthetic: 10cc 1% lidocaine Indications for procedure: Elevated PSA 4.2 19% Counselling: Technical aspects, risks and benefits of proposed procedure were discussed in full. All questions have been answered, written consent has been obtained and patient agrees to proceed. Procedure: The patient was brought into the procedure area and placed in a left lateral decubitus position. Patient identity confirmed. Perioperative antibiotics confirmed. Safety pause time out performed. SARBJIT was performed to dilate rectal sphincter Iodine 10cc with 60 cc gel was placed per rectum to reduce infection risk using a catheter tip syringe. 8 Hz Kenzie rectal end-fire ultrasound probe was placed transrectally without difficulty. The prostate was visualized. Seminal vesicles were normal. Prostate margins were clearly demarcated. Bladder was seen superiorly. No cystic structures were noted No calcifications were noted at the surgical margin The prostate was otherwise homogeneous in nature The prostate was measured in 3 dimensions Prostatic Width: 4.9 cm Prostatic Height: 3.4 cm Urethral Length: 4.6 cm Total volume equals : 40 ml An ultrasound-guided pudendal nerve block was performed using a 22 gauge spinal needle in the sagittal plane. 4 cc of 1% lidocaine placed at the junction of each seminal vesicle and 2 cc placed at the apex of the prostate. A 12 core biopsy was performed with 6 cores each side using an 18 gauge prostate biopsy gun. Two cores each were taken at the prostate apex, mid and base on each side. Cores were spaced between lateral and medial aspects. Each core was examined as placed on specimen foam as part of quality control engineering technician to ensure a minimum 1 cm of length and minimal discontinuity. He tolerated the procedure well with minimal rectal bleeding. Blood pressure remained stable following procedure. He was able to ambulate to bathroom after 5 minutes. Printed instructions regarding antibiotic use and common adverse events from the procedure such as low-grade temperature, potential infection and bleeding were given. He understands to call the office or go to an emergency room should any of these events arise. Pathology: 12 core prostate biopsy. CPT code 95634: Transrectal ultrasound; this is a diagnostic test for evaluation of the prostate and surrounding structures, looking for abnormalities or suspicious areas worrisome for cancer CPT code 37502: Biopsy, prostate; needle or punch, single or multiple, any approach CPT code 07361: Ultrasonic guidance for needle placement (eg, biopsy, aspiration, injection, localization device), imaging supervision and interpretation
[2024-02-04] MEDS: Lidocaine HCl 1 % MPF 5 ML VIAL 10 ML SUBCUT (08:43)
== END 2024-02-04 07:56 | disposition home or self-care (01) ==
LOC: HO.US 07:55
PROVIDERS: PCP Internal Medicine; Visit Provider Urology
DX: R97.20 Elevated prostate specific antigen [PSA] (principal)
CPT/HCPCS: 55700; 76942; 88305; 88344; J2003

== ENCOUNTER → 2024-02-04 07:55 | Outpatient (BNV) | payer OTHER, SELFPAY | PROVIDERS: PCP Internal Medicine; Visit Provider Urology | DX: R97.20 Elevated prostate specific antigen [PSA] (principal) | CPT/HCPCS: 55700; 76872; 76942 ==

== ENCOUNTER 2024-02-07 07:39 | Outpatient (REF) | payer OTHER, SELFPAY ==
--- OUTSIDE RECORDS SUMMARY | 2024-02-07 07:42 | XMS_ITS ---
Author Organization [facility] Address [address] [place] [address] Care Team Providers Care Director Of Dietary Name Role Phone Ambrosio William MD Primary Care Provider Gordon Daniel Jr Unavailable [phone] ALLERGIES Allergen (clinical drug ingredient) Drug/Non Drug [...] Problem Colon cancer screening (Z12.11) Active confirmed 572214720 Problem Personal history of colonic polyps (Z86.0100) Active confirmed 037547251 Problem Long-term use of aspirin therapy (Z79.82) Active confirmed 653066345 VITAL SIGNS BMI 22.89 kg/m2 01/29/2024 Blood pressure systolic 000 mm Hg 01/29/20 24 Blood pressure diastolic 00 mm Hg 024 Height 5 ft 11 in in 01/29/2024 Temperature 97.1 degrees Fahrenheit 01/29/20 24 Weight 164 lb 2 oz lbs 01/29/2024 Encounters Encounter Location Date Provider Diagnosis [facility] [address] [place] [address] 01/29/2024 Gordon Mireles Jr Colon cancer screening [...] Provider Name:Gordon rand Jr, 02/12/2024 01:40:00 PM, [address] [place] [address], [id number], Progress Notes * Examination Category Sub-Category Detail Notes General Examination GENERAL APPEARANCE: in no ac [place] distress HEAD: normocephalic EYES: sclera non-icteric NECK/THYROID: no lymphadenopathy HEART: S1, S2 normal, no mu rmurs CHEST: normal shape and exp ansion LUNGS: clear to auscultatio n bilaterally ABDOMEN: soft, nontender, non distended, bowel sounds present, no organomegaly SKIN: anicteric EXTREMITIES: no clubbing, cyanosi s, or edema PSYCH: cognitive function i ntact ORAL CAVITY: mucosa moist
--- OUTSIDE RECORDS SUMMARY | 2024-02-07 07:42 | XMS_ITS ---
Author Organization [facility] Address [address] [facility] [address] [place] [address] Care Team Providers Care Clinical Statistics Manager Name Role Phone Ambrosio William MD Primary Care Provider Unavaila Gordon Chisholm Jr Unavailable [phone] REASON FOR VISIT Patient presents today for a screening colonoscopy Encounters Encounter Location Date Provider Diagnosis [facility] [address] [address] 09/18/2023 Gordon Mireles Jr PLAN OF TREATMENT Next Appt Details Provider Name:Gordon rand Jr, 02/12/2024 01:40:00 PM, [address] [place] [address] , [place], [place], [phone],
--- OUTSIDE RECORDS SUMMARY | 2024-02-07 07:42 | XMS_ITS | Patient Health Record ---
Author Organization [facility] Address [address] [place] [address] Care Team Providers Care Consumer Electronic Retail Specialist Name Role Phone Ambrosio William MD Primary Care Provider Gordon Daniel Jr Unavailable ALLERGIES Allergen (clinical drug ingredient) Drug/Non Drug [...] Problem Colon cancer screening (Z12.11) Active confirmed 499524992 Problem Personal history of colonic polyps (Z86.0100) Active confirmed 505510374 Problem Long-term use of aspirin therapy (Z79.82) Active confirmed 265025810 VITAL SIGNS Temperature 97.1 degrees Fahrenheit 01/29/2024 Blood pressure diastolic 00 mm Hg 01/29/2024 Height 5 ft 11 in in 01/29/2024 Blood pressure systolic 000 mm Hg 01/29/2024 Weight 164 lb 2 oz lbs 01/29/2024 BMI 22.89 kg/m2 01/29/2024 Encounters Encounter Location Date Provider Diagnosis [facility] [address] [place] [address] 09/18/2023 Gordon Mireles Jr [facility] [address] [place] [phone] 01/29/2024 Gordon Mireles Jr Colon cancer screening Z12.11 ; Long-term use of aspirin therapy Z79.82 and Personal history of colonic polyps Z86.0100 [facility] [address] [place] [address] 09/13/2023 Gordon Mireles Jr [facility] [address] [place] [phone] 02/04/2024 Gordon Mireles Jr ASSESSMENTS Encounter Date [...] Provider Name:Gordon rand Jr, 02/12/2024 01:40:00 PM, [address] [place] [address] , [place], [place], [phone], Insurance Providers Payer Name Payer Address Payer Phone Subscriber Number Group Number Insured Name Patient Relationship to Insured Coverage Start Date Coverage End Date [employer] ([employer]) [address] [place] [address] [id number] ERNST GAYLE Self - patient is the insured MEDICAL (GENERAL) HISTORY Medical History History ICD Code Colonoscopy 02/10, normal, f lea-year followup due to personal history of colon polyps. Coronary artery disease Hypothyroidism Hyperlipidemia Elevated PSA, prostate biopsy scheduled 02/17 Surgical History Surgery Date(Month/Year) CABG x3 2019
--- OUTSIDE RECORDS SUMMARY | 2024-02-07 07:42 | XMS_ITS ---
Author Organization [facility] Address [address] [place] [address] Care Team Providers Care Print Shop Helper Name Role Phone Ambrosio William MD Primary Care Provider Unavailbridgett Mireles Jr, Gordon David [phone] REASON FOR VISIT FYI Encounters Encounter Location Date Provider Diagnosis [facility] [address] [place] [phone] 02/04/2024 Gorodn Mireles Jr PLAN OF TREATMENT Next Appt Details Provider Name:Gordon rand Jr, 02/12/2024 01:40:00 PM, [address] [place] [address] , [place], [place], [phone],
[2024-02-07 10:54] LABS: Cholesterol 164 mg/dL (<200); HDL Cholesterol 50 mg/dL (>40); LDL Cholesterol Calculated 85 mg/dL (<100); Triglycerides 145 mg/dL (<150)
== END 2024-02-07 07:40 | disposition home or self-care (01) ==
LOC: HO.10HDL 07:39
PROVIDERS: Visit Provider Physician Assistant
DX: E78.2 Mixed hyperlipidemia (principal)
CPT/HCPCS: 36415; 80061

== ENCOUNTER 2024-03-04 13:33 | Outpatient (AMB) | payer OTHER, SELFPAY ==
--- NOTE | 2024-03-04 13:33 | MHC.OFFVIS ---
Intake Visit Reasons: Prostae biopsy results Intake Note: Patient is present for PROSTATE BIOPSY RESULTS Urology Medication:NONE Antibiotic Allergy:PENICILLIN Blood Thinner:ASPIRIN Alumina Plant Supervisor Required: No Allergies penicillin V Allergy (Unknown, Verified 03/04/24 13:34) Rash acetaminophen [From Percocet] Adverse Reaction (Verified 03/04/24 13:34) Vomiting oxycodone [From Percocet] Adverse Reaction (Verified 03/04/24 13:34) Vomiting HPI Comments Details: Camilo is a pleasant male. He is a patient Dr. William. He is seen for the following urologic conditions - elevated PSA Telemedicine Evaluation 15 min Consultation Clicko Ashvin Video Discussed results Six-month follow-up PSA Elevated PSA PSA 08/18 4.2 family history prostate cancer father Prostate biopsy negative 02/17 [facility] Medical History HTN (hypertension) Herniated disc Surgical History H/O heart surgery Review of Systems Const All systems reviewed & are unremarkable except as noted in HPI and below Reports no additional complaints Resp Reports no additional complaints GI Reports no additional complaints Reports as per HPI Musc Reports no additional complaints Physical Exam Telemedicine evaluation Appropriate responses Regular breathing rate and rhythm HEENT Head: Yes normal to inspection Ears: hearing grossly normal bilaterally Eyes General: appearance normal, both eyes and all related structures Neck Neck: Yes normal visual inspection Chest Chest palpation & inspection: normal inspection of the chest Resp Effort & Inspection: normal respiratory effort and able to speak in complete sentences Telehealth Telehealth Location of provider rendering services: practice address Location of patient: address on file Patient Identification confirmed using: Name, : Yes Telehealth method: voice only Patient verbally consented to treatment: Yes Patient verbally consented to billing insurance company: Yes Patient informed of any privacy concerns related to visit: Yes Assessment & Plan Assessment & Plan (1) Elevated PSA: Code(s): R97.20 - Elevated prostate specific antigen [PSA] Category: Medical Plan Six-month follow-up PSA Orders: Orders PSA,Total (Free>4and<10) 6 Months R97.20 - Elevated prostate specific antigen [PSA] Patient Instructions: Imaging studies, laboratory and physical exam results were discussed and reviewed in detail. No major barriers to patient understanding were identified. An opportunity to ask questions regarding the treatment plan was provided. All questions were answered. The patient expressed understanding and agreement with the above treatment plan. The patient is aware they should contact our office by phone for worsening of their current condition or the appearance of new urologic symptoms. Compliance is encouraged with any medications and followup testing that is ordered. It is a privilege to participate in the urologic care of your patient. If you have any questions or concerns regarding treatment for the above conditions, or other urologic issues, please do not hesitate to contact me. The office telephone contact is [phone]. This note is constructed using voice recognition software. While every effort has been made to ensure accuracy waist fitter errors may have been included. Yours sincerely, Dr Jimenez Delcid MD, [facility] - Urology Providers of Expert, Compassionate Care for the Genitourinary System Coding Level of Care Code Tele Est Pt Level 3 (03241) Diagnoses Elevated PSA R97.20
--- OUTSIDE RECORDS SUMMARY | 2024-03-04 13:35 | XMS_ITS ---
Author Organization [facility] Address [address] [place] [address] Care Team Providers Care Instructor Knitting Name Role Phone Ambrosio William MD Primary Care Provider Unavailbridgett Mireles Jr, Gordon David [phone] REASON FOR VISIT FYI Encounters Encounter Location Date Provider Diagnosis [facility] [address] [facility] [address] [place] [phone] 02/04/2024 Gordon Mireles Jr PLAN OF TREATMENT Next Appt Details Provider Name:Gordon rand Jr, 03/31/2024 10:00:00 AM, [address] [place] [address] , [place], [place], [phone],
--- OUTSIDE RECORDS SUMMARY | 2024-03-04 13:35 | XMS_ITS ---
Author Organization [facility] Address [address] [place] [phone] Care Team Providers Care Head Insulation Board Saw Operator Name Role Phone Ambrosio William MD Primary Care Provider UnavailGordon Rider Jr REASON FOR VISIT screening Encounters Encounter Location Date Provider Diagnosis [facility] [place] Outpatient [address] [place] [phone] 02/12/2024 Gordon Mireles Jr PLAN OF TREATMENT Next Appt Details Provider Name:Gordon rand Jr, 03/31/2024 10:00:00 AM, [address] [place] [address], [phone],
--- OUTSIDE RECORDS SUMMARY | 2024-03-04 13:35 | XMS_ITS ---
Author Organization [facility] Address [address] [place] [address] Care Team Providers Care Cook Vacuum Kettle Name Role Phone Ambrosio William MD Primary Care Provider Unavaila Gordon Chisholm Jr REASON FOR VISIT CANCEL PROCEDURE, RESCHEDULE Encounters Encounter Location Date Provider Diagnosis [facility] [address] [phone] 02/07/2024 Gordon Mireles Jr PLAN OF TREATMENT Next Appt Details Provider Name:Gordon rand Jr, 03/31/2024 10:00:00 AM, [address] [place] [address] , [place], [place], [phone],
--- OUTSIDE RECORDS SUMMARY | 2024-03-04 13:35 | XMS_ITS | Patient Health Record ---
Author Organization [facility] Address [address] [place] [phone] Care Team Providers Care Insulator Cutter And Former Name Role Phone Ambrosio William MD Primary Care Provider Gordon Daniel Jr Unavailable [phone] ALLERGIES Allergen (clinical drug ingredient) Drug/Non Drug [...] Problem Colon cancer screening (Z12.11) Active confirmed 024625831 Problem Personal history of colonic polyps (Z86.0100) Active confirmed 608549033 Problem Long-term use of aspirin therapy (Z79.82) Active confirmed [id number] VITAL SIGNS Temperature 97.1 degrees Fahrenheit 01/29/2024 Blood pressure diastolic 00 mm Hg 01/29/2024 Height 5 ft 11 in in 01/29/2024 Blood pressure systolic 000 mm Hg 01/29/2024 Weight 164 lb 2 oz lbs 01/29/2024 BMI 22.89 kg/m2 01/29/2024 Encounters Encounter Location Date Provider Diagnosis [facility] [place] [place] [address] [place] [id number] 02/12/2024 Gordon Mireles Jr [facility] [address] [place] [phone] 09/18/2023 Gordon Mireles Jr [facility] [address] [place] [phone] 01/29/2024 Gordon Mireles Jr Colon cancer screening Z12.11 ; Long-term use of aspirin therapy Z79.82 and Personal history of colonic polyps Z86.0100 [facility] [address] [place] [phone] 09/13/2023 Gordon Mireles Jr [facility] [address] [place] [phone] 02/04/2024 Gordon Mireles Jr [facility] [address] [place] [phone] 02/07/2024 Gordon Mireles Jr ASSESSMENTS Encounter Date Diagnosis [...] Provider Name:Gordon rand Jr, 03/31/2024 10:00:00 AM, [address] [place] [address] , [place], [place], [phone], Insurance Providers Payer Name Payer Address Payer Phone Subscriber Number Group Number Insured Name Patient Relationship to Insured Coverage Start Date Coverage End Date [facility] ([employer]) Wenceslao Lyles [id number] [id number] ERNST GAYLE Self - patient is the insured MEDICAL (GENERAL) HISTORY Medical History History ICD Code Colonoscopy 02/10, normal, f lea-year followup due to personal history of colon polyps. Coronary artery disease Hypothyroidism Hyperlipidemia Elevated PSA, prostate biopsy scheduled 02/17 Surgical History Surgery Date(Month/Year) CABG x3 2018
== END 2024-03-04 13:52 | disposition home or self-care (01) ==
LOC: HO.HUSH 13:33
PROVIDERS: PCP Internal Medicine; Visit Provider Urology
DX: R97.20 Elevated prostate specific antigen [PSA] (principal)
CPT/HCPCS: 98005

== ENCOUNTER 2024-03-31 07:31 | Day surgery (SDC) | payer OTHER, SELFPAY ==
--- OUTSIDE RECORDS SUMMARY | 2024-02-06 02:31 | XMS_ITS ---
Author Organization [facility] Address [address] [place] [address] Care Team Providers Care Cogeneration Technician Name Role Phone Ambrosio William MD Primary Care Provider Unavailbridgett Mireles Jr, Gordon David REASON FOR VISIT FYI Encounters Encounter Location Date Provider Diagnosis [facility] [address] [facility] [address] [place] [phone] 02/04/2024 Gordon Mireles Jr PLAN OF TREATMENT Next Appt Details Provider Name:Gordon rand Jr, 02/12/2024 01:40:00 PM, [address] [place] [address] , [place], [place], [phone],
--- OUTSIDE RECORDS SUMMARY | 2024-02-06 02:31 | XMS_ITS ---
Author Organization [facility] Address [address] [place] [address] Care Team Providers Care Summer Law Clerk Name Role Phone Ambrosio William MD Primary Care Provider Gordon Daniel Jr Unavailable [phone] ALLERGIES Allergen (clinical drug ingredient) Drug/Non Drug Allergy documented on EMR Reaction Allergy Type Onset Date Status Penicillin Unknown Drug Allergy Active REASON FOR VISIT Patient presents today for a screening colonoscopy MEDICATIONS Medication SIG (Take, Route, Frequency, Duration) Notes Start Date End Date Status Synthroid 100 MCG TAKE 1 TABLET DAILY Oral for 90 Active Aspirin Low Dose 81 MG TAKE 1 TABLET BY MOUTH EVERY DAY Oral for 90 Active Losartan Potassium 25 MG Oral for 90 Active Atorvastatin Calcium 80 MG Oral for 90 Active MiraLax (colon prep) 17 GM/SCOOP mixed with Gatorade or Crystal Light Orally begin at 5:00 p.m. the day before the procedure for 1 day 01/29/2024 Active IMMUNIZATIONS Vaccine Route Administration Date Status Comme nts Influenza Unknown 01/29/2024 Refused SOCIAL HISTORY Tobacco Use: Social History Observation Description Date Details (start date - stop date) Never Smoker NA - NA Sex Assigned At : Social History Observation Description Sex Assigned At Unknown Tobacco Use/Smoking Question Answer Notes Patient is a nonsmoker Alcohol Screen Question Answer Notes Did you have a drink containing alcohol in the p ast year? No Points 0 Interpretation Negative PROBLEMS Problem Type ICD Code Onset Dates Problem Status W/U Status Risk SNOMED Code Notes Problem Colon cancer screening (Z12.11) Active confirmed 836381088 Problem Personal history of colonic polyps (Z86.0100) Active confirmed 583791407 Problem Long-term use of aspirin therapy (Z79.82) Active confirmed 293477639 VITAL SIGNS BMI 22.89 kg/m2 01/29/2024 Blood pressure systolic 000 mm Hg 01/29/20 24 Blood pressure diastolic 00 mm Hg 024 Height 5 ft 11 in in 01/29/2024 Temperature 97.1 degrees Fahrenheit 01/29/20 24 Weight 164 lb 2 oz lbs 01/29/2024 Encounters Encounter Location Date Provider Diagnosis [facility] [address] [place] [address] 01/29/2024 Gordon Mireles Jr Colon cancer screening Z12.11 ; Long-term use of aspirin therapy Z79.82 and Personal history of colonic polyps Z86.0100 ASSESSMENTS Encounter Date Diagnosis Assessment Notes Treatment Notes Treatment Clinical Notes 01/29/2024 Colon cancer screening (ICD-10 - Z12.11) Colonoscopy material was printed 01/29/2024 Long-term use of aspirin therapy (ICD-10 - Z79.82) 01/29/2024 Personal history of colonic polyps (ICD-10 - Z86.0100) PLAN OF TREATMENT Medication Medication Name Sig Start Date Stop Date Notes MiraLax (colon prep) 17 GM/SCOOP mixed with Gatorade or Crystal Light Orally begin at 5:00 p.m. the day before the procedure for 1 day 01/29/2024 Treatment Notes Assessment Notes Colon cancer screening Colonoscopy mater ial was printed Future Test Test Name Order Date COLONOSCOPY 01/29/2024 Next Appt Details Follow Up: 1 Year, Reason: Provider Name:Gordon rand Jr, 02/12/2024 01:40:00 PM, [address] [place] [address], [id number], Progress Notes * Examination Category Sub-Category Detail Notes General Examination GENERAL APPEARANCE: in no ac [place] distress HEAD: normocephalic EYES: sclera non-icteric NECK/THYROID: no lymphadenopathy HEART: S1, S2 normal, no mu rmurs CHEST: normal shape and exp ansion LUNGS: clear to auscultatio n bilaterally ABDOMEN: soft, nontender, non distended, bowel sounds present, no organomegaly SKIN: anicteric EXTREMITIES: no clubbing, cyanosi s, or edema PSYCH: cognitive function i ntact ORAL CAVITY: mucosa moist
--- OUTSIDE RECORDS SUMMARY | 2024-02-06 02:32 | XMS_ITS | Patient Health Record ---
Author Organization [facility] Address [address] [place] [address] Care Team Providers Care Ice Grinder Name Role Phone Ambrosio William MD Primary Care Provider Gordon Daniel Jr Unavailable [phone] ALLERGIES Allergen (clinical drug ingredient) Drug/Non Drug Allergy documented on EMR Reaction Allergy Type Onset Date Status Penicillin Unknown Drug Allergy Active REASON FOR REFERRAL No Information MEDICATIONS Medication SIG (Take, Route, Frequency, Duration) [...] Problem Colon cancer screening (Z12.11) Active confirmed [id number] Problem Personal history of colonic polyps (Z86.0100) Active confirmed 459104269 Problem Long-term use of aspirin therapy (Z79.82) Active confirmed 375095408 VITAL SIGNS Temperature 97.1 degrees Fahrenheit 01/29/2024 Blood pressure diastolic 00 mm Hg 01/29/2024 Height 5 ft 11 in in 01/29/2024 Blood pressure systolic 000 mm Hg 01/29/2024 Weight 164 lb 2 oz lbs 01/29/2024 BMI 22.89 kg/m2 01/29/2024 Encounters Encounter Location Date Provider Diagnosis [facility] [address] [place] [address] 09/18/2023 Gordon Mireles Jr [facility] [address] [place] [address] 01/29/2024 Gordon Mireles Jr Colon cancer screening Z12.11 ; Long-term use of aspirin therapy Z79.82 and Personal history of colonic polyps Z86.0100 [facility] [address] [place] [address] 09/13/2023 Gordon Mireles Jr [facility] [address] [place] [address] 02/04/2024 Gordon Mireles Jr ASSESSMENTS Encounter Date Diagnosis Assessment Notes Treatment Notes Treatment Clinical Notes 01/29/2024 Colon cancer screening (ICD-10 - Z12.11) Colonoscopy material was printed 01/29/2024 Long-term use of aspirin therapy (ICD-10 - Z79.82) 01/29/2024 Personal history of colonic polyps (ICD-10 - Z86.0100) PLAN OF TREATMENT Future Test Test Name Order Date COLONOSCOPY 01/29/2024 Next Appt Details Provider Name:Gordon rand Jr, 02/12/2024 01:40:00 PM, [address] [place] [address] , [place], [place], [id number], Insurance Providers Payer Name Payer Address Payer Phone Subscriber Number Group Number Insured Name Patient Relationship to Insured Coverage Start Date Coverage End Date [employer] ([place] [employer]) [address] [place] [address] [id number] ERNST GAYLE Self - patient is the insured MEDICAL (GENERAL) HISTORY Medical History History ICD Code Colonoscopy 02/10, normal, f lea-year followup due to personal history of colon polyps. Coronary artery disease Hypothyroidism Hyperlipidemia Elevated PSA, prostate biopsy scheduled 02/17 Surgical History Surgery Date(Month/Year) CABG x3 2019
--- OUTSIDE RECORDS SUMMARY | 2024-02-06 02:32 | XMS_ITS ---
Author Organization [facility] Address [address] [facility] [address] [place] [address] Care Team Providers Care Steel Box Toe Inserter Name Role Phone Ambrosio William MD Primary Care Provider Unavaila Gordon Chisholm Jr Unavailable REASON FOR VISIT Patient presents today for a screening colonoscopy Encounters Encounter Location Date Provider Diagnosis [facility] [address] [address] 09/18/2023 Gordon Mireles Jr PLAN OF TREATMENT Next Appt Details Provider Name:Gordon rand Jr, 02/12/2024 01:40:00 PM, [address] [place] [address] , [place], [place], [phone],
[2024-03-27 15:00] VITALS: BMI 22.9
[2024-03-31 07:55] VITALS: BMI 21.9
[2024-03-31] MEDS: Lactated Ringers 1,000 ML 100 ML IVCONT (08:04)
[2024-03-31 08:05] VITALS: BP 119/89; PULSE 102; RESP 18; TEMP 36.8; O2SAT 97
--- NOTE | 2024-03-31 09:06 | HO.ANESPROP2 ---
Documented by User: Crystal Deras NP 03/30/24 09:02 HPI - Anesthesia Eval Consult details Narrative: 64yo M for Colonoscopy PMFSH Active Problems Active Problems: All Active Problems Elevated PSA (Acute) Past Medical History Medical History HLD (hyperlipidemia) Hypothyroidism HTN (hypertension) Herniated disc Surgical History Surgical History Hx of colonoscopy (2019) Hx of coronary artery bypass graft (2019) Social History Social History (Updated 03/27/24 @ 14:59 by Maddie Boyd RN) Are you a primary critical care nurse specialist to a significant other at home: No Do you presently have visiting nurse or other home services: No Patient Tobacco Use Status: Former Tobacco user Tobacco use type: Cigarette Substance Use Frequency: Occasionally Have you been hit, kicked, punched, or otherwise hurt by someone within the past year? If so, by whom?: No Are you DNR?: No Advance Directives: No Advance Directives Information Provided: Yes Recently lost weight without trying: No Nutrition Risks: No Nutritional Risk Meds Allergies Allergy/AdvReac Type Severity Reaction Status Date / Time penicillin V Allergy Unknown Rash Verified 03/31/24 07:29 acetaminophen [From Percocet] AdvReac Vomiting Verified 03/31/24 07:29 oxycodone [From Percocet] AdvReac Vomiting Verified 03/31/24 07:29 Home Medications ?Medication ?Instructions ?Recorded ?Confirmed ?Last Taken ?Type aspirin 81 mg tablet,delayed 81 mg PO DAILY 08/22/23 03/27/24 Unknown History release atorvastatin 80 mg tablet 80 mg PO DAILY 08/22/23 03/27/24 Unknown History levothyroxine 100 mcg tablet 100 mcg PO DAILY 08/22/23 03/27/24 Unknown History (Synthroid) losartan 25 mg tablet 12.5 mg PO DAILY 08/22/23 03/27/24 Unknown History Exam Height,Weight and Vital Signs: Height 5 ft 11 in Weight 74.446 kg Assessment and Plan Assessment Anesthesia Assessment: Chart Reviewed Documented by User: Karina Hernandez DO 03/31/24 09:06 [facility] Past Medical History Medical History HLD (hyperlipidemia) Hypothyroidism HTN (hypertension) Herniated disc Family History Family history of problems with anesthesia: No Surgical History Surgical History Hx of colonoscopy (2019) Hx of coronary artery bypass graft (2019) History of Problems with Anesthesia: Yes (PONV after 2nd colonoscopy. No issues with previous colonoscopy or CABG.) Social History Social History (Updated 03/27/24 @ 14:59 by Maddie Boyd RN) Are you a primary critical care nurse specialist to a significant other at home: No Do you presently have visiting nurse or other home services: No Patient Tobacco Use Status: Former Tobacco user Tobacco use type: Cigarette Substance Use Frequency: Occasionally Have you been hit, kicked, punched, or otherwise hurt by someone within the past year? If so, by whom?: No Are you DNR?: No Advance Directives: No Advance Directives Information Provided: Yes Recently lost weight without trying: No Nutrition Risks: No Nutritional Risk Meds Allergies Allergy/AdvReac Type Severity Reaction Status Date / Time penicillin V Allergy Unknown Rash Verified 03/31/24 07:29 acetaminophen [From Percocet] AdvReac Vomiting Verified 03/31/24 07:29 oxycodone [From Percocet] AdvReac Vomiting Verified 03/31/24 07:29 Home Medications ?Medication ?Instructions ?Recorded ?Confirmed ?Last Taken ?Type aspirin 81 mg tablet,delayed 81 mg PO DAILY 08/22/23 03/27/24 Unknown History release atorvastatin 80 mg tablet 80 mg PO DAILY 08/22/23 03/27/24 Unknown History levothyroxine 100 mcg tablet 100 mcg PO DAILY 08/22/23 03/27/24 Unknown History (Synthroid) losartan 25 mg tablet 12.5 mg PO DAILY 08/22/23 03/27/24 Unknown History Exam Exam Date and Time: 03/31/24 0903 Height,Weight and Vital Signs: Height 5 ft 11 in Weight 74.446 kg Vital Signs Temperature 98.2 F 03/31/24 08:05 Pulse Rate 102 H 03/31/24 08:05 Respiratory Rate 18 03/31/24 08:05 Blood Pressure 119/89 03/31/24 08:05 Pulse Oximetry 97 03/31/24 08:05 Oxygen Delivery Method Room Air 03/31/24 08:05 Temperature 98.2 F 03/31/24 08:05 Pulse Rate 102 H 03/31/24 08:05 Respiratory Rate 18 03/31/24 08:05 Blood Pressure 119/89 03/31/24 08:05 Pulse Oximetry 97 03/31/24 08:05 Oxygen Delivery Method Room Air 03/31/24 08:05 Airway Mallampati Class: II TM Dist: >3cm Neck ROM: Full Loose/Missing/Broken Teeth: No (patient denies any loose or broken teeth) Heart: S1S2 Lungs: CTAB Assessment and Plan Assessment Anesthesia Assessment: Anesthesia Plan Discussed and Chart Reviewed Final Anesthetic Review Family History of Problems with Anesthesia: No History of Problems with Anesthesia: Yes (PONV after 2nd colonoscopy. No issues with previous colonoscopy or CABG.) NPO: Yes ASA Class: II Final Preanesthetic Review: No Changes in Pt Med Stat, Meds/Allgs Chart Reviewed, Consent Obtained/Reviewed and Anes Risks/Benef Reviewed Patient Risk: Low Procedure Risk: Low Anesthetic Plan Anesthetic Plan: MAC: and Agree w/ Assess. and Plan Disposition: Standard PACU
--- NOTE | 2024-03-31 09:24 | MHC.SHP ---
Pre-Procedural Eval Section A - 24 Hr Update-Section A only Date of Service: 03/31/24 Section B - Complete if H&P > 30 days Chief Complaint: screening Details of Present Illness: see H&P no changes Relevant Family History (Specify if Yes): No Relevant Social History: None Present Medications: see Short Stay Collaborative assessment Medical History: No relevant PMH Allergies: Allergies Allergy/AdvReac Type Severity Reaction Status Date / Time penicillin V Allergy Unknown Rash Verified 03/31/24 07:29 acetaminophen [From Percocet] AdvReac Vomiting Verified 03/31/24 07:29 oxycodone [From Percocet] AdvReac Vomiting Verified 03/31/24 07:29 Review of Systems Sugical H&P ROS: Negative: Constitution, Cardiovascular, Respiratory, Neurological, Psychiatric, Hem-Onc, Allergic/Immunologic, Gastrointestinal, Genitourinary, Musculoskeletal, Integumentary, Endocrine and Eyes/Ears/Nose/Throat Exam Surgical H&P Exam: Normal: HEENT, Normal: Heart, Normal: Lungs, Normal: Extremities, Normal: Abdomen, Normal: Skin and Normal: Neurological Plan Diagnosis/Plan: Unchanged I have reviewed the history and physical and performed a pertinent physical examination on my patient. No changes have occurred unless specified. Time Spent With Patient Time: Total time managing care of this patient today ____ minutes.
[2024-03-31 09:58] VITALS: BP 93/63; PULSE 68; RESP 16; TEMP 36.2; O2SAT 97
[2024-03-31 10:13] VITALS: BP 117/83; PULSE 82; RESP 18; TEMP 36.5; O2SAT 100
--- NOTE | 2024-03-31 10:41 | OP_ITS ---
DATE OF SERVICE: 03/31/2024 SURGEON: Gordon Mireles MD INDICATIONS: Colon cancer screening and prior history of adenomatous colon polyps. PREOPERATIVE DIAGNOSIS: POSTOPERATIVE DIAGNOSIS: PROCEDURE PERFORMED: Colonoscopy to the terminal ileum with biopsy. ESTIMATED BLOOD LOSS: COMPLICATIONS: ANESTHESIA: Monitored anesthesia care. ASSISTANTS: SPECIMENS: DESCRIPTION OF PROCEDURE: A history and physical was performed. The risks and benefits of the procedure were explained to the patient. Informed consent was obtained. The patient was placed in the left lateral decubitus position. A digital rectal exam was performed and was found to be normal. The Olympus pediatric video colonoscope was introduced into the rectum and advanced to the cecum. The cecum was identified by transillumination, palpation, and identification of ileocecal valve. Examination was performed. The scope was removed. He tolerated the procedure well and was returned to the recovery area in stable condition. FINDINGS: The terminal ileum was examined and appeared normal. The visualized colonic mucosa was normal. The quality of the prep was good. Two polyps were identified. Both measured less than 5 mm and removed with the biopsy forceps. Retroflexed examination showed moderate-sized internal hemorrhoids. IMPRESSION: Colon polyps. RECOMMENDATION: Follow up the biopsy results. MD JODIE Jain/MARCO ANTONIO / [id number]
== END 2024-03-31 10:45 | disposition home or self-care (01) ==
PROVIDERS: PCP Internal Medicine; Visit Provider Internal Medicine Gastroenterology
PROC: 0DJD8ZZ Inspection of Lower Intestinal Tract, Via Natural or Artificial Opening Endoscopic (ICD-10-PCS; CPT 45378; principal; 2024-03-31 09:10)
DX: Z12.11 Encounter for screening for malignant neoplasm of colon (principal); Z86.0101 Personal history of adenomatous and serrated colon polyps; D12.0 Benign neoplasm of cecum; K62.1 Rectal polyp; K64.8 Other hemorrhoids; R97.20 Elevated prostate specific antigen [PSA]; I25.10 Atherosclerotic heart disease of native coronary artery without angina pectoris; Z95.1 Presence of aortocoronary bypass graft; I10 Essential (primary) hypertension; E78.5 Hyperlipidemia, unspecified; E03.9 Hypothyroidism, unspecified; Z79.82 Long term (current) use of aspirin; Z79.899 Other long term (current) drug therapy; Z88.0 Allergy status to penicillin
CPT/HCPCS: 45380; 88305; J2003; J2704

== ENCOUNTER 2024-05-18 15:37 | Outpatient (AMB) | payer OTHER, SELFPAY ==
[2024-05-18 15:52] VITALS: BP 122/74; PULSE 77; TEMP 36.4; O2SAT 98; BMI 22.9
--- NOTE | 2024-05-18 15:52 | MHC.PC.OV ---
Vital Signs 05/18/24 15:52 Height 5 ft 11 in Weight 164 lb BMI 22.9 BP 122/74 Pulse 77 Pulse Source Pulse Oximeter Temp 97.6 F Temp Source Temporal Artery Scan Pulse Oximetry (%) 98 Oxygen Delivery Method Room Air Intake Visit Reasons: Routine Certified Pharmacist Assistant Required: No Accompanied by: Self / Same As Patient Allergies penicillin V Allergy (Unknown, Verified 05/18/24 16:34) Rash acetaminophen [From Percocet] Adverse Reaction (Verified 05/18/24 16:34) Vomiting oxycodone [From Percocet] Adverse Reaction (Verified 05/18/24 16:34) Vomiting Medication List - Last Reconciled 05/18/24 by Tevin Hansen MD aspirin 81 mg PO DAILY atorvastatin 80 mg PO DAILY levothyroxine (Synthroid) 100 mcg PO DAILY losartan 12.5 mg PO DAILY Tobacco use date assessed: 05/18/24 Fall risk assessment: No Falls in past year Last assessed Fall Risk: 05/18/24 Dental Screening Dental Screen Date: 05/18/24 Did you have a dental visit in the last 12 months?: Yes Did you have a dental problem in the last 6 months where you did not have access to dental care?: No PFSH Medical History HLD (hyperlipidemia) Hypothyroidism HTN (hypertension) Herniated disc Surgical History Hx of colonoscopy (2019) Hx of coronary artery bypass graft (2019) Family History (Updated 05/18/24 @ 16:11 by Mariajose Burdick CMA) Mother Brain cancer Father Cardiac arrest Social History Housing: House Are you a primary career development facilitator to a significant other at home: No Do you presently have visiting nurse or other home services: No Patient Tobacco Use Status: Never used Tobacco e-Cigarette/Vaping Use: Never Used service: No Current occupational status: retired Cognitive needs: No Hearing needs: No Vision needs: Yes (rx glasses) Questionnaire PHQ-9 Over the last 2 weeks, how often have you been bothered by any of the following problems? 1. Little interest or pleasure in doing things: not at all 2. Feeling down, depressed, or hopeless: not at all 3. Trouble falling or staying asleep, or sleeping too much: not at all 4. Feeling tired or having little energy: not at all 5. Poor appetite or overeating: not at all 6. Feeling bad about yourself - or that you are a failure or have let yourself or your family down: not at all 7. Trouble concentrating on things, such as reading the newspaper or watching television: not at all 8. Moving or speaking so slowly that other people could have noticed. Or the opposite - being so fidgety or restless that you have been moving around a lot more than usual: not at all 9. Thoughts that you would be better off or of hurting yourself in some way: not at all Total score: 0 Source: Developed by Drs. Tahir Gillespie, Alla Steven, Parker Powell and colleagues, with an educational clifford from [employer]. Thrive Questionnaire Date Thrive assessed: 05/18/24 I am a: Patient Within the past 12 months, did the food you bought not last and you didn't have the money to get more?: Never true Within the past 12 months, did you worry whether your food would run out before you got money to buy more?: Never true Do you have trouble paying for medicines?: No Do you have trouble getting transportation to medical appointments?: No Do you have trouble paying your heating and electricity bill?: No Do you have trouble taking care of your child, family member or friend?: No Do you have trouble with day-to-day activities such as bathing, preparing meals, shopping, managing finances, etc.?: No Are you currently unemployed and looking for a job?: No Are you interested in more education?: No THRIVE Score: 0 AUDIT C Alcohol Use Questionnaire (AUDIT-C) 1. How often do you have a drink containing alcohol?: Never 3. How often do you have six or more drinks on one occasion?: Never Total Score: 0 DASHA-7 AMB Questionnaire DASHA-7 Date DASHA - 7 assessed: 05/18/24 Feeling nervous, anxious, or on edge: 0 = Not at all Not being able to stop or control worryin = Not at all Worrying too much about different things: 0 = Not at all Trouble relaxin = Not at all Being so restless that it is hard to sit still: 0 = Not at all Becoming easily annoyed or irritable: 0 = Not at all Feeling afraid as if something awful might happen: 0 = Not at all Total DASHA-7 score (0-4 normal; 5-9 mild; 10-14 moderate; 15-21 severe): 0 Source: Developed by Drs. Tahir Gillespie, Alla Steven, Parker Powell and colleagues, with an educational clifford from [employer]. Physical exam (Primary Care) Vital Signs: Last Vital Signs Temp 97.6 F 05/18/24 15:52 Pulse 77 05/18/24 15:52 BP 122/74 05/18/24 15:52 Pulse Ox 98 05/18/24 15:52 Oxygen Delivery Method Room Air 05/18/24 15:52 BMI result Body Mass Index 22.9 Tobacco/Smoking Status: Tobacco use Status Tobacco use date assessed 05/18/24 05/18/24 15:58 Patient Tobacco Use Status Never used Tobacco 05/18/24 16:12 Tobacco use type 05/18/24 16:12 e-Cigarette/Vaping Use Never Used 05/18/24 16:12 PHQ-9: PHQ-9 Score PHQ-9: Total score 0 05/18/24 15:58 Thrive Assessment: Date of Thrive Assessment Date Thrive assessed 05/18/24 05/18/24 15:58 Coding Level of Care Code New Pt Level 4 (29307) Complex EM visit Add On G2211 Diagnoses Basal cell carcinoma C44.91 Elevated PSA R97.20 Hyperlipidemia E78.5 Assessment & Plan Assessment & Plan (1) Basal cell carcinoma: Code(s): C44.91 - Basal cell carcinoma of skin, unspecified Plan: Dermatology referral made. (2) Elevated PSA: Code(s): R97.20 - Elevated prostate specific antigen [PSA] Category: Medical Plan: Patient had a biopsy. Has a urologist (3) Hyperlipidemia: Code(s): E78.5 - Hyperlipidemia, unspecified Plan: BW ordered. Will call with results Plan History of Present Illness The patient is a 64-year-old male presenting with a lesion on the ear suspected to be basal cell carcinoma. The lesion has manifested over the past few months, beginning as a minor white protrusion. It has become larger after being inadvertently scratched, subsequently bleeding once. Furthermore, the patient has a notable medical history involving coronary artery bypass grafting conducted several years prior. He follows up with a steam hammer operator who has prescribed ongoing lipid management tests. Social History - Former remedial teacher, retired now. - Engages in regular physical activity, specifically playing pickleball and table tennis 5 days a week. - Does not smoke or use tobacco products. - Prefers outdoor activities for exercise due to noise concerns with indoor sports environments. Review of Systems - Dermatologic: Reports ear lesion with previous bleeding, now suspected basal cell carcinoma. - Cardiovascular: No new chest pain or dyspnea. Physical Exam General: Appearance normal, both eyes and all related structures Nutritional Appearance: Well nourished Orientation/consciousness: Patient oriented x3 Limitations: No limitations Head: Lesion on ear, possible basal cell carcinoma Neck: Normal visual inspection Chest: Normal palpation of entire chest wall Respiratory: Normal respiratory effort Neurology: Patient oriented x3 Right ear: verrucous, easily bleeding lesion external ear. Results - Labs: History of PSA biopsy, results reported as normal. - Tests and Diagnostics: Recent normal colonoscopy result as discussed. Plan I will refer the patient to a on site coordinator to examine the suspected basal cell carcinoma on the ear. A lipid panel, including direct LDL reflex as per the steam hammer operator's request, will be initiated to guide his ongoing cardiac management. The patient was instructed to fast for accurate lab evaluations. Patient was informed and verbally consented to the use of an ambient scribe for clinic note documentation during this visit. Discussion Notes During our discussion, I informed the patient of the suspected diagnosis of basal cell carcinoma. I clarified that this is a preliminary clinical suspicion and reassured him of the necessity of professional dermatologic assessment for verification and management. I emphasized the importance of the lipid panel in managing his cardiovascular health following his CABG surgery, discussing the need for fasting to ensure precise lipid measurements. I briefed him on the referral process and the in-house laboratory test procedure requiring no external requisitions, and encouraged him to revert with any additional concerns or changes in his condition. Patient Instructions - Avoid picking or scratching the ear lesion to prevent aggravation. - Await communication for the dermatology referral. - Fast overnight prior to the lipid panel blood test appointment. - Proceed to the facility's laboratory for test without a requisition form, mentioning the order for lipid panel tests at check-in. - For any significant changes or symptoms, advise seeking prompt medical attention. Orders: Orders Complete Blood Count no Diff Today E78.5 - Hyperlipidemia, unspecified, R97.20 - Elevated prostate specific antigen [PSA] Basic Metabolic Panel Today E78.5 - Hyperlipidemia, unspecified, R97.20 - Elevated prostate specific antigen [PSA] Liver Panel Today E78.5 - Hyperlipidemia, unspecified, R97.20 - Elevated prostate specific antigen [PSA] Thyroid Stimulating Hormone Today E78.5 - Hyperlipidemia, unspecified, R97.20 - Elevated prostate specific antigen [PSA] UA and rflx microscopic Today E78.5 - Hyperlipidemia, unspecified, R97.20 - Elevated prostate specific antigen [PSA] Lipid Panel Today E78.5 - Hyperlipidemia, unspecified, R97.20 - Elevated prostate specific antigen [PSA] Referrals Dermatology Referral C44.91 - Basal cell carcinoma of skin, unspecified
--- OUTSIDE RECORDS SUMMARY | 2024-05-18 18:24 | XMS_ITS ---
Author Organization [facility] Address [address] [place] [phone] Care Team Providers Care Deputy Chief Magistrate Name Role Phone Nataliia LUCAS, Ambrosio Primary Care Provider Odessa Mireles Jr, Gordon David [phone] REASON FOR VISIT screening Encounters Encounter Location Date Provider Diagnosis [facility] [address] [place], [place] [phone] 02/12/2024 Gordon Mireles Jr Plan Of Treatment No Information Progress Notes * ERNST BHAGATDOB:[birth year] (64 yo M)Acc No.[id number]:02/12/2024 COLON WITH MAC Patient:?ERNST BHAGAT Provider:?Gordon Mireles MD :1960???Age:64 Y???Sex:Male Carlos e:02/12/2024 Address:[address] [place], [place] [phone] Pcp:Ambrosio William MD Subjective: * Chief Complaints: * ???1. Screening. * Medical History:? Objective: * Vitals:? Assessment: Plan: * Treatment: * * The named appointment provid er may or may not be the originator of this progress note, and it is not deemed complete until electronically signed by the appointment provider. Sign off status: Pending * Provider:?Gordon Mireles MD Date:?1 04/14/2023 Generated for Daphne keita/Floridalma/eTransmitting on:?05/18/2024 06:23 PM EDT
--- OUTSIDE RECORDS SUMMARY | 2024-05-18 18:24 | XMS_ITS ---
Author Organization [facility] Address [address] [place] [phone] Care Team Providers Care Financial Aid Advisor Name Role Phone Ambrosio William MD Primary Care Provider Odessa Mireles Jr, Gordon David REASON FOR VISIT pathology Encounters Encounter Location Date Provider Diagnosis [facility] [address] [place] [phone] 04/02/2024 Gordon Mireles Jr Plan Of Treatment No Information Progress Notes * BHAGATERNST MYERSDOB:[birth year] (64 yo M)Acc No.[id number]:04/02/2024 Patient:?ERNST BHAGAT :1960???Age:64 Y???Sex:Male Address:[address] [place] [id number] * true * Date:? Generated for Daphne keita/Floridalma/eTransmitting on:?05/18/2024 06:24 PM EDT
--- OUTSIDE RECORDS SUMMARY | 2024-05-18 18:24 | XMS_ITS ---
Author Organization [facility] Address [address] [place] [phone] Care Team Providers Care Vp Corporate Development Name Role Phone Nataliia LUCAS, Ambrosio Primary Care Provider Gordon Daniel Jr [phone] REASON FOR VISIT COLON SCREENING Encounters Encounter Location Date Provider Diagnosis [facility] [place] [address] [place], [place] [phone] 03/31/2024 Gordon Mireles Jr Colon cancer screening Z12.11 and Colon polyps K63.5 Assessments Encounter Date Diagnosis (ICD Code) Assessment Notes Treatment Notes Treatment Clinical Notes Section Notes 03/31/2024 Colon cancer screening (ICD-10 - Z12.11) 03/31/2024 Colon polyps (ICD-10 - K63.5) Plan Of Treatment No Information Progress Notes * ERNST BHAGATDOB:[birth year] (64 yo M)Acc No.[id number]:03/31/2024 COLON WITH MAC Patient:ERNST GUERRA Provider:?Gordon Mireles MD :1960???Age:64 Y???Sex:Male Carlos e:03/31/2024 Address:[address] [place], [place] [phone] Pcp:Ambrosio William MD Subjective: * Chief Complaints: * ???1. COLON SCREENING. * Medical History:? Objective: * Vitals:? Assessment: * Assessment: 1.?Colon cancer screening - Z12.11 (Primary)???2.?Colon polyps - K63.5??? Plan: * Treatment: * Procedure Codes:?16955 COLON OSCOPY AND BIOPSY, 0529F INTRVL 3+YRS PTS CLNSCP DOCD * * The named appointment provid er may or may not be the originator of this progress note, and it is not deemed complete until electronically signed by the appointment provider. Sign off status: Pending * Provider:?Gordon Mireles MD Date:?0 03/31/2024 Generated for Daphne keita/Floridalma/Higinio on:?05/18/2024 06:24 PM EDT
--- OUTSIDE RECORDS SUMMARY | 2024-05-18 18:24 | XMS_ITS | Patient Health Record ---
Author Organization [facility] Address [address] [place] [phone] Care Team Providers Care Hybrid Powertrain Development Engineer Name Role Phone Ambrosio William MD Primary Care Provider Gordon Daniel Jr Unavailable Allergies Allergen (clinical drug ingredient) Drug/Non Drug Allergy documented on EMR Reaction Allergy Type Onset Date Status Penicillin Unknown Drug Allergy Active Results Component Value Reference Range Notes Pathology Reviewed date:04/02/2024 01:28:20 PM Interpretation: Performing Lab:[facility], [address] [place] [phone] Notes/Report: Name: SathishJem Age/Sex: 64/M : 1960 Unit#: [id number] Attend Dr: Gordon Mireles MD Re03/31/24 [place] [facility] [place] [facility] Disch: SPEC : [id number] RECD: 03/31/24-100 STATUS: ANETA CORDOBA NUM: [id number] PARRIS: 03/31/24-937 [facility] DR: Gordon Mireles MD ENTERED: 03/31/24-12 19 SP TYPE: Surgical OTHR DR: Ambrosio William MD ORDERED: HE Stain/6, Gross Micro L4/2 Diagnosis A. Colon, cecal poly p: Tubular adenoma; negative for high-grade dysplasia and carcinoma. B. Colon, rectal coby yp: Hyperplastic polyp. Clinical History Pre-Op Dx: Screening Post-Op Dx: Polyp Microscopic Description Microscopic sections reviewed. Material Received A. Polyp cecum B. Rectal polyp Gross Description Received in two parts. Part A: Received in formalin labeled ?polyp cecum? are 2 ruano-pink irregular tissue fragments measuring 0.25 and 0.3 cm, submitted in toto in a cassette labeled A. Part B: Received in formalin labeled ?rectal polyp? are 2 ruano-pink irregular tissue fragments each measu ring 0.3 cm, submitted in toto in a cassette labeled B. CEDS Copies To: Gordon Mireels MD [facility] [address] [place] [address] Drive [address] [place] [address] Ambrosio William MD [facility] [address] [place] [address] Drive [address] [place] [address] CONTINUED ON NEXT PAGE Name: Jem Bower Age/Sex: 64/M : 1960 Unit#: [id number] Attend Dr: Gordon Mireles MD Re03/31/24 Status : [facility] Location: [facility] Disch: SPEC : [id number] RECD: 03/31/24 STATUS: ANETA CORDOBA NUM: [id number] PARRIS: 03/31/24 [facility] DR: Gordon Mireles MD ENTERED: 03/31/24 SP TYPE: Surgical OTHR DR: Ambrosio William MD ORDERED: SCOTT Stain/6, Gross Micro L4/2 Copies To: (Continued) [phone] Signed (si gnature on file) Maddie Cecilia 04/01/24 1255 END OF REPORT Reason For Referral No Information Medications Medication SIG (Take, Route, Frequency, Duration) Notes [...] the procedure for 1 day 01/29/2024 Active Immunizations Vaccine Route Administration Date Status Comme nts Influenza Unknown 01/29/2024 Refused Social History Tobacco Use: Social History Observation Description Date Details (start date - stop date) Never Smoker NA - NA Tobacco Use/Smoking Question Answer Notes Patient is a nonsmoker Alcohol Screen Question Answer Notes Did you have a drink containing alcohol in the p ast year? No Points 0 Interpretation Negative Problems Problem Type SNOMED Code ICD Code Onset Dates Problem Status W/U Status Risk Notes Problem 270599022 Colon cancer screening (Z12.11) Active confirmed Problem 046037918 Long-term use of aspirin therapy (Z79.82) Active confirmed Problem 473075756 Personal history of colonic polyps (Z86.0100) Active confirmed Vital Signs Temperature 97.1 degrees Fahrenheit 01/29/2024 Blood pressure diastolic 00 mm Hg 01/29/2024 Height 5 ft 11 in in 01/29/2024 Blood pressure systolic 000 mm Hg 01/29/2024 Weight 164 lb 2 oz lbs 01/29/2024 BMI 22.89 kg/m2 01/29/2024 Encounters Encounter Location Date Provider Diagnosis [facility] Out[facility] [address] [place] [phone] 03/31/2024 Gordon Mireles Jr Colon cancer screening Z12.11 and Colon polyps K63.5 [facility] [address] [place] [phone] 01/29/2024 Gordon Mireles Jr Colon cancer screening Z12.11 ; Long-term use of aspirin therapy Z79.82 and Personal history of colonic polyps Z86.0100 [facility] [address] [place] [phone] 09/13/2023 Gordon Mireles Jr [facility] [address] [place] [phone] 02/04/2024 Gordon Mireles Jr [facility] [address] [place] [phone] 02/07/2024 Gordon Mireles Jr [facility] [address] [place] [phone] 04/02/2024 Gordon Mireles Jr Assessments Encounter Date Diagnosis (ICD Code) Assessment Notes Treatment Notes Treatment Clinical Notes Section Notes 03/31/2024 Colon cancer screening (ICD-10 - Z12.11) 03/31/2024 Colon polyps (ICD-10 - K63.5) 01/29/2024 Colon cancer screening (ICD-10 - Z12.11) Colonoscopy material was printed We discussed colonoscopy today. We discussed risks and benefits of the procedure today. He understands these and agrees to proceed. He would like to schedule this around the time of his prostate biopsy, and we advised him to check with his urologist to make sure this is okay. 01/29/2024 Long-term use of aspirin therapy (ICD-10 - Z79.82) We discussed colonoscopy today. We discussed risks and benefits of the procedure today. He understands these and agrees to proceed. He would like to schedule this around the time of his prostate biopsy, and we advised him to check with his urologist to make sure this is okay. 01/29/2024 Personal history of colonic polyps (ICD-10 - Z86.0100) We discussed colonoscopy today. We discussed risks and benefits of the procedure today. He understands these and agrees to proceed. He would like to schedule this around the time of his prostate biopsy, and we advised him to check with his urologist to make sure this is okay. Plan Of Treatment Future Test Test Name Order Date COLONOSCOPY 01/29/2024 Insurance Providers Payer Name Payer Address Payer Phone Subscriber Number Group Number Insured Name Patient Relationship to Insured Coverage Start Date Coverage End Date [employer] ([employer]) [address] [place] [address] [id number] ERNST GAYLE Self - patient is the insured Medical (General) History Medical History History ICD Code Colonoscopy 02/10, normal, f lea-year followup due to personal history of colon polyps. Coronary artery disease Hypothyroidism Hyperlipidemia Elevated PSA, prostate biopsy scheduled 02/17 Surgical History Surgery Date(Month/Year) CABG x3 2019
--- OUTSIDE RECORDS SUMMARY | 2024-05-18 18:24 | XMS_ITS | Clinical Summary ---
Author Organization [facility] [employer] [facility] Address [address] [place] [address] Phone Care Team Providers Care Technical Sales Consultant Name Role Phone Ambrosio William MD Primary Care Provider [phone] Allergies Active Allergy Reactions Criticality Noted Date Comments Oxycodone Hcl 07/20/2020 Penicillins Rash Medium 01/28/2017 Medications aspirin 81 mg EC tablet TAKE 1 TABLET BY MOUTH EVERY DAY 4 Active levothyroxine sodium (TIROSINT) 100 mcg capsule Take 100 mcg by mouth daily. Active losartan (COZAAR) 25 mg tablet TAKE 1/2 TABLET DAILY *AUROBINDO * 45 tablet 1 4 Active atorvastatin (LIPITOR) 80 mg tablet TAKE 1 TABLET DAILY 90 tablet 1 5 Active atorvastatin (LIPITOR) 80 mg tablet TAKE 1 TABLET DAILY 4 05/14/19 25 Discontinued Active Problems Problem Noted Date Diagnosed Date SOB (shortness of breath) 08/09/2021 Athscl heart disease of [place] coronary artery w/o ang pctrs 07/20/2020 Cardiomyopathy 07/20/2020 Assessment & Plan (02/14/2024 6:23 PM EST): Orders: ECG 12 lead Hypothyroidism 01/28/2017 Mixed hyperlipidemia 01/28/2017 Surgical History Surgery Date Site/Laterality Comments COLONOSCOPY 2001 PROCEDURE: HISTORICAL COLONOSCOPY; COMMENT: [facility]; one tubular adenoma COLONOSCOPY 01/28/2017 PROCEDURE: HISTORICAL COLONOSCOPY; COMMENT: no polyps Medical History Medical History Date Comments Hypothyroidism 01/28/2017 DX:Hypothyroidis m Hyperlipidemia 01/28/2017 DX:Hyperlipidemi a Family history of cardiovasc ular disease DX:Family history of cardiov ascular disease Family History Medical History Relation Name Comments Heart attack Father Colon cancer Paternal Grandmother Relation Name Status Comments Father (Age 78) may have h ad colon cancer Paternal Grandmother Social History Tobacco Use Types Packs/Day Years Used Date Smoking Tobacco: Former Cigarettes 0.5 12 1 03/18/1977 - 01/16/1990 Smokeless Tobacco: Never Alcohol Use Standard Drinks/Week Comments Not Currently 0 (1 standard drink = 0.6 oz pur e alcohol) Sex and Gender Information Value Date Recorded Sex Assigned at Not on file Legal Sex Male 4:23 AM EST Gender Identity Not on file Sexual Orientation Not on file Obstetrics History Last Filed Vital Signs Vital Sign Reading Time Taken Comments Blood Pressure 152/96 02/11/2024 10:35 AM EST Pulse 93 02/11/2024 10:35 AM EST Temperature - - Respiratory Rate - - Oxygen Saturation 99% 02/11/2024 10:35 AM EST Inhaled Oxygen Concentration - - Weight 74.8 kg (165 lb) 02/11/2024 10:35 AM EST Height 180.3 cm (5' 11 ) 02/11/2024 10:35 AM EST Body Mass Index 23.01 02/11/2024 10:35 AM EST Plan of Treatment Health Maintenance Due Date Last Done Comments Pneumococcal Vaccine: 50+ Years (1 of 1 - PCV) 01/16/2010 Cholesterol Screening (Lipid Panel) 02/03/2022 Colorectal Cancer Screening: Colonoscopy 02/03/2022 01/28/2017 Depression Screening 02/03/2022 HIV Screening 02/03/2022 Hepatitis C Screening 02/03/2022 Social Influencers of Health Screening 02/03/2022 Hypertension/CHF/CAD Annual BMP Blood Test 02/04/2022 COVID-19 Vaccine ( season) 2023 12/06/2022, 03/07/2022, 12/24/2020, Additional history exists Influenza Vaccine (#1) 2023 12/10/2020 DTaP,Tdap,and Td Vaccines (2 - Td or Tdap) 06/09/2028 06/09/2018 RSV Immunization Patients 60+ Years Old (1 - 1-dose 75+ series) 01/16/2035 Zoster Vaccines Completed 04/04/2021, 12/10/2020 HIB Vaccines Aged Out No longer eligi ble based on patient's age to complete this topic HPV Vaccines Aged Out No longer eligi ble based on patient's age to complete this topic Hepatitis A Vaccines Aged Out No long er eligible based on patient's age to complete this topic Hepatitis B Vaccines Aged Out No long er eligible based on patient's age to complete this topic IPV Vaccines Aged Out No longer eligi ble based on patient's age to complete this topic MMR Vaccines Aged Out No longer eligi ble based on patient's age to complete this topic Meningococcal ACWY Vaccine Aged Out N o longer eligible based on patient's age to complete this topic Meningococcal B Vacine Aged Out No lo nger eligible based on patient's age to complete this topic Pneumococcal Vaccine: Pediatrics (0 to 5 Years) and At-Risk Patients (6 to 64 Years) Aged Out No longer eligible based on patient's age to complete this topic RSV Immunization Patients Under 20 months Aged Out No longer eligible based on patient's age to complete this topic Varicella Vaccines Aged Out No longer eligible based on patient's age to complete this topic Procedures Procedure Name Priority Date/Time Associated Diagnosis Comments COLONOSCOPY Routine 01/28/2017 from Last 3 Months or Most Recently Relevant to Health Maintenance Results * Colonoscopy (01/28/2017) Colonoscopy Abstracted, no interpretation Anatomical Region Laterality Modality Other us Historical Provider HEALTH MAINTENANCE Final Result from Last 3 Months or Most Recently Relevant to Health Maintenance Insurance [facility] Care Teams Technical Sales Consultant Relationship Specialty Start Date End Date Ambrosio William MD [address] [place] [address] Dr Quyen [place] PCP - General 08/23/18
== END 2024-05-18 16:33 | disposition home or self-care (01) ==
LOC: HO.HMCHD 15:37
PROVIDERS: PCP Internal Medicine; Visit Provider Internal Medicine
DX: C44.91 Basal cell carcinoma of skin, unspecified (principal); R97.20 Elevated prostate specific antigen [PSA]; E78.5 Hyperlipidemia, unspecified

== ENCOUNTER → 2024-05-18 15:37 | Outpatient (BNVA) | payer OTHER, SELFPAY | PROVIDERS: PCP Internal Medicine; Visit Provider Internal Medicine ==

== ENCOUNTER 2024-06-17 07:38 | Outpatient (REF) | payer OTHER, SELFPAY ==
--- OUTSIDE RECORDS SUMMARY | 2024-06-17 07:40 | XMS_ITS ---
Author Organization [facility] Address [address] [place] [address] Care Team Providers Care Cruise Staff Member Name Role Phone Nataliia LUCAS, Ambrosio Primary Care Provider Odessa Mireles Jr, Gordon David [phone] REASON FOR VISIT screening Encounters Encounter Location Date Provider Diagnosis [facility] [place] [address] [place] [phone] 02/12/2024 Gordon Mireles Jr Plan Of Treatment No Information Progress Notes * ERNST BHAGATDOB:[birth year] (64 yo M)Acc No.[id number]:02/12/2024 COLON WITH MAC Patient:?ERNST BHAGAT Provider:?Gordon Mireles MD :1960???Age:64 Y???Sex:Male Carlos e:02/12/2024 Address:[address] [place], [place] [phone] Pcp:Ambrosio William MD Subjective: * Chief Complaints: [...] Mireles MD Date:?1 04/14/2023 Generated for Daphne keita/Floridalma/eTvalerismitting on:?06/17/2024 07:40 AM EDT
--- OUTSIDE RECORDS SUMMARY | 2024-06-17 07:40 | XMS_ITS | Patient Health Record ---
Author Organization [facility] Address [address] [place] [address] Care Team Providers Care Elementary Secretary Name Role Phone Ambrosio William MD Primary Care Provider Gordon Daniel Jr Unavailable Allergies Allergen (clinical drug ingredient) Drug/Non Drug Allergy documented on EMR Reaction Allergy Type Onset Date Status Penicillin Unknown Drug Allergy Active Results Component Value Reference Range Notes Pathology Reviewed date:04/02/2024 01:28:20 PM Interpretation: Performing Lab:[facility], [address] [place] [id number] Notes/Report: Name: SathishJem Age/Sex: 64/M : 1960 Unit#: [id number] Attend Dr: Gordon Mireles MD Re03/31/24 Status : [facility] [place] Location: [facility] Disch: SPEC : [id number] RECD: 03/31/24-100 STATUS: ANETA CORDOBA NUM: [id number] PARRIS: 03/31/24-[address] [facility] [address]: Gordon Mireles MD ENTERED: 03/31/24-12 19 [...] cassette labeled B. CEDS Copies To: Gordon Mireles MD [facility] [address] [place] [address] [address] [place] [address] Ambrosio William MD [facility] [address] [place] [address] Drive [address] [place] [address] CONTINUED ON NEXT PAGE Name: Jem Bower Age/Sex: 64/M : 1960 Unit#: [id number] Attend Dr: Gordon Mireles MD Re03/31/24 Status : [facility] Location: [facility] Disch: SPEC : [id number] RECD: 03/31/24 STATUS: ANETA CORDOBA NUM: [id number] PARRIS: 03/31/[address] [facility] [address]: Gordon Mireles MD ENTERED: 03/31/24 SP TYPE: Surgical OTHR DR: Ambrosio William MD ORDERED: SCOTT Stain/6, Gross Micro L4/2 Copies To: (Continued) [phone] Signed (si gnature on file) Maddie Cecilia [...] Problem Status W/U Status Risk Notes Problem 031465183 Colon cancer screening (Z12.11) Active confirmed Problem 339279500 Long-term use of aspirin therapy (Z79.82) Active confirmed Problem 775238719 Personal history of colonic polyps (Z86.0100) Active confirmed Vital Signs Temperature 97.1 degrees Fahrenheit 01/29/2024 Blood pressure diastolic 00 mm Hg 01/29/2024 Height 5 ft 11 in in 01/29/2024 Blood pressure systolic 000 mm Hg 01/29/2024 Weight 164 lb 2 oz lbs 01/29/2024 BMI 22.89 kg/m2 01/29/2024 Encounters Encounter Location Date Provider [place] [facility] [place] [address] [place] [phone] 03/31/2024 Gordon Mireles Jr Colon cancer screening Z12.11 and Colon polyps K63.5 [facility] [address] [place] [phone] 01/29/2024 Gordon Mireles Jr Colon cancer screening Z12.11 ; Long-term use of aspirin therapy Z79.82 and Personal history of colonic polyps Z86.0100 [facility] [address] [place] [phone] 09/13/2023 Gordon Mireles Jr [facility] [address] [place] [phone] 02/04/2024 Gordon Mireles Jr [facility] [address] [place] [phone] 02/07/2024 Gordon Mireles Jr [facility] [address] [place] [phone] 04/02/2024 Gordon Mireles Jr Assessments Encounter Date [...] Insured Coverage Start Date Coverage End Date [employer] ([employer]) [id number] [place] [id number] ERNST GAYLE Self - patient is the insured Medical (General) History Medical History History ICD Code Colonoscopy 02/10, normal, f lea-year followup due to personal history of colon polyps. Coronary artery disease Hypothyroidism Hyperlipidemia Elevated PSA, prostate biopsy scheduled 02/17 Surgical History Surgery Date(Month/Year) CABG x3 2019
--- OUTSIDE RECORDS SUMMARY | 2024-06-17 07:40 | XMS_ITS | Clinical Summary ---
Author Organization [facility] [employer] [facility] Address [address] [place] [address] Phone Care Team Providers Care Director Of In Service Education Name Role Phone Ambrosio William MD Primary Care Provider [phone] Allergies Active Allergy Reactions Criticality Noted Date Comments Oxycodone Hcl 07/20/2020 Penicillins Rash Medium 01/28/2017 Medications aspirin 81 mg EC tablet TAKE 1 TABLET BY MOUTH EVERY DAY 08/26/2023 Active levothyroxine sodium (TIROSINT) 100 mcg capsule Take 100 mcg by mouth daily. Active losartan (COZAAR) 25 mg tablet TAKE 1/2 TABLET DAILY *AUROBINDO* 45 tablet 1 01/28/2024 Active atorvastatin (LIPITOR) 80 mg tablet TAKE 1 TABLET DAILY 90 tablet 1 05/13/2024 Active Active Problems Problem Noted Date Diagnosed Date SOB (shortness of breath) 08/09/2021 Athscl heart disease of min[place] ve coronary artery w/o ang pctrs 07/20/2020 Cardiomyopathy ([facility]/HCC V24, CMS/HCC V28) 2020 Assessment & Plan (02/14/2024 6:23 PM EST): [...] 03/07/2022, 12/24/2020, Additional history exists Influenza Vaccine (Season Ended) 2024 12/10/2020 DTaP,Tdap,and Td Vaccines (2 - Td or Tdap) 06/09/2028 06/09/2018 RSV Immunization Adult Patients (1 - 1-dose 75+ series) 01/16/2035 Zoster [...] age to complete this topic Meningococcal B Vaccine Aged Out No l onger eligible based on patient's age to complete [...] Most Recently Relevant to Health Maintenance Insurance [facility] [place] [id number] Care Teams Director Of In Service Education Relationship Specialty Start Date End Date Ambrosio William MD [address] [place] [address] Dr Quyen [place] PCP - General 08/23/18
--- OUTSIDE RECORDS SUMMARY | 2024-06-17 07:41 | XMS_ITS ---
Author Organization [facility] Address [address] [place] [phone] Care Team Providers Care Lean Process Deployment Consultant Name Role Phone Ambrosio William MD Primary Care Provider Odessa Mireles Jr, Gordon David REASON FOR VISIT pathology Encounters Encounter Location Date Provider Diagnosis [facility] [address] [place] [phone] 04/02/2024 Gordon Mireles Jr Plan Of Treatment No Information Progress Notes * BHAGATERNST MYERSDOB:[birth year] (64 yo M)Acc No.[id number]:04/02/2024 Patient:?ERNST BHAGAT :1960???Age:64 Y???Sex:Male Address:[address] [place] [phone] * true * Date:? Generated for Daphne keita/Floridalma/eTransmitting on:?06/17/2024 07:41 AM EDT
--- OUTSIDE RECORDS SUMMARY | 2024-06-17 07:41 | XMS_ITS ---
Author Organization [facility] Address [address] [place] [phone] Care Team Providers Care Formula Bottler Name Role Phone Nataliia LUCAS, Ambrosio Primary Care Provider Gordon Daniel Jr REASON FOR VISIT COLON SCREENING Encounters Encounter Location Date Provider Diagnosis [facility] [place] [address], [place] [phone] 03/31/2024 Gordon Mireles Jr Colon cancer screening Z12.11 and Colon polyps K63.5 Assessments Encounter Date Diagnosis (ICD Code) Assessment Notes Treatment Notes Treatment Clinical Notes Section Notes 03/31/2024 Colon cancer screening (ICD-10 - Z12.11) 03/31/2024 Colon polyps (ICD-10 - K63.5) Plan Of Treatment No Information Progress Notes * ERNST BHAGATDOB:[birth year] (64 yo M)Acc No.[id number]:03/31/2024 COLON WITH MAC Patient:ERNST GUERRA Provider:?Gordon Mireles MD :1960???Age:64 Y???Sex:Male Carlos e:03/31/2024 Address:[address] [place], [place] [phone] Pcp:Ambrosio William MD Subjective: * Chief Complaints: * ???1. COLON SCREENING. * Medical History:? Objective: * Vitals:? Assessment: * Assessment: 1.?Colon cancer screening - Z12.11 (Primary)???2.?Colon polyps - K63.5??? Plan: * Treatment: * Procedure Codes:?37429 COLON OSCOPY AND BIOPSY, 0529F INTRVL 3+YRS PTS CLNSCP DOCD * * The named appointment provid er may or may not be the originator of this progress note, and it is not deemed complete until electronically signed by the appointment provider. Sign off status: Pending * Provider:?Gordon Mireles MD Date:?0 03/31/2024 Generated for Daphne keita/Floridalma/Higinio on:?06/17/2024 07:40 AM EDT
[2024-06-17 09:57] LABS: Appearance Urine Clear; Color Urine Yellow; Glucose Urine UA Negative (Negative); Leukocyte Esterase Urine Negative (Negative); Nitrite Urine Negative (Negative); Specific Gravity - Urine 1.025 (1.005-1.025); Urine Blood Negative (Negative); Urine Ketones 15 mg/dL (Negative); Urine Protein Negative (Neg-Trace)
[2024-06-17 10:02] LABS: Hematocrit 45.6 % (42.0-52.0); Hemoglobin 15.4 g/dl (14.0-18.0); Mean Corpuscular HGB Conc 33.8 g/dl (31.0-36.0); Mean Corpuscular Hemoglobin 31.5 pg (27.0-33.0); Mean Corpuscular Volume 93.3 fL (80.0-98.0); Mean Platelet Volume 10.5 fL (9.4-12.4); Platelet Count 160 X10*3/uL (160-400); Red Blood Count 4.89 X10*6/uL (4.60-5.80); Red Cell Distribution Width 12.5 % (11.0-16.0); White Blood Count 5.6 X10*3/uL (4.8-10.8)
[2024-06-17 11:52] LABS: Alanine Aminotransferase 33 U/L (0-40); Albumin Level 4.3 g/dL (3.5-5.0); Alkaline Phosphatase 67 U/L (39-117); Anion Gap 8 (12-20); Aspartate Amino Transferase 35 U/L (5-37); Bilirubin Direct 0.3 mg/dL (0.0-0.5); Bilirubin Total 1.1 mg/dL (0.0-1.0); Blood Urea Nitrogen 13 mg/dL (9-16); Calcium 9.5 mg/dL (8.4-10.2); Carbon Dioxide 30 mmol/L (22-29); Chloride 108 mmol/L (96-108); Cholesterol 126 mg/dL (<200); Estimated Glomerular Filt Rate > 60; Glucose Random 96 mg/dL (60-115); HDL Cholesterol 53 mg/dL (>40); LDL Cholesterol Calculated 56 mg/dL (<100); Potassium 4.3 mmol/L (3.3-5.1); Sodium 142 mmol/L (135-145); Thyroid Stimulating Hormone 1.18 uIU/mL (0.32-4.0); Total Protein 6.6 g/dL (6.5-8.0); Triglycerides 87 mg/dL (<150)
== END 2024-06-17 07:39 | disposition home or self-care (01) ==
LOC: HO.10HDL 07:38
PROVIDERS: Visit Provider Internal Medicine
DX: R97.20 Elevated prostate specific antigen [PSA] (principal); E78.5 Hyperlipidemia, unspecified
CPT/HCPCS: 36415; 80048; 80061; 80076; 81003; 84443; 85027

== ENCOUNTER 2024-11-27 07:09 | Outpatient (REF) | payer OTHER, SELFPAY ==
--- OUTSIDE RECORDS SUMMARY | 2023-09-18 05:20 | XMS_ITS ---
Author Organization [facility] Address [address] [place] [phone] Care Team Providers Care Heating And Air Conditioning Mechanic Name Role Phone Nataliia (RETIRED) Ambrosio LUCAS Primary Care Provide r Frankie Mireles Jr, Gordon Unavailable REASON FOR VISIT Patient presents today for a screening colonoscopy Encounters Encounter Location Date Provider Diagnosis [facility] [address] [facility] [address] [place] [phone] 09/18/2023 Gordon Mireles Jr Plan Of Treatment No Information Progress Notes * ERNST BHAGATDOB:[birth year] (64 yo M)Acc No.[id number]:09/18/2023 Progress Notes Patient: ERNST SANDS Provider: Marc Mireles MD :1960 A ge:63 Y S ex:Male Date:09/18/2023 Address:[address] [place], [place] [phone] Pcp:Ambrosio William (RETIRED )MD Subjective: * Chief [...] 0 09/18/2023 Generated for Daphne keita/Floridalma/Casiitting on: 07:12 AM EDT
--- OUTSIDE RECORDS SUMMARY | 2024-02-12 09:40 | XMS_ITS ---
Author Organization [facility] Address [address] [place] [address] Care Team Providers Care Billet Heater Operator Name Role Phone Nataliia (RETIRED) Ambroiso LUCAS Primary Care Provide r Frankie Mireles Jr, Gordon Unavailable REASON FOR VISIT screening Encounters Encounter Location Date Provider Diagnosis [facility] [place] [address] [place], [place] [phone] 02/12/2024 Gordon Mireles Jr Plan Of Treatment No Information Progress Notes * ERNST BHAGATDOB:[birth year] (64 yo M)Acc No.[id number]:02/12/2024 COLON WITH MAC Patient: ERNST SANDS Provider: Marc Mireles MD :1960 A ge:64 Y S ex:Male Date:02/12/2024 Address:[address] [place], [place] [phone] Pcp:Ambrosio William (RETIRED )MD Subjective: * Chief Complaints: * 1 . Screening. * Medical History: Objective: * Vitals: Assessment: Plan: * Treatment: * * The named appointment provid er may or may not be the originator of this progress note, and it is not deemed complete until electronically signed by the appointment provider. Sign off status: Pending * Provider: Marc Mireles MD Date: 04/14/2023 Generated for Daphne keita/Floridalma/eTvalerismitting on: 07:11 AM EDT
--- OUTSIDE RECORDS SUMMARY | 2024-03-31 05:10 | XMS_ITS ---
Author Organization [facility] Address [address] [place] [address] Care Team Providers Care Plastic Frame Inserter Name Role Phone Nataliia (RETIRED) Ambrosio LUCAS Primary Care Provide r Frankie Mireles Jr, Gordon Unavailable [phone] REASON FOR VISIT COLON SCREENING Encounters Encounter Location Date Provider Diagnosis [facility] [place] [address], [place] [phone] 03/31/2024 Gordon Mireles Jr Colon cancer screening Z12.11 and Colon polyps K63.5 Assessments Encounter Date Diagnosis (ICD Code) Assessment Notes Treatment Notes Treatment Clinical Notes Section Notes 03/31/2024 Colon cancer screening (ICD-10 - Z12.11) 03/31/2024 Colon polyps (ICD-10 - K63.5) Plan Of Treatment No Information Progress Notes * ERNST BHAGATDOB:[birth year] (64 yo M)Acc No.[id number]:03/31/2024 COLON WITH MAC Patient: ERNST SANDS Provider: Marc Mireles MD :1960 A ge:64 Y S ex:Male Date:03/31/2024 Address:[address] [place], [place] [phone] Pcp:Ambrosio William (RETIRED )MD Subjective: * Chief [...] 0 03/31/2024 Generated for Daphne keita/Floridalma/Higinio on: 07:12 AM EDT
--- OUTSIDE RECORDS SUMMARY | 2024-11-27 07:12 | XMS_ITS | Patient Health Record ---
Author Organization [facility] Address [address] [place] [phone] Care Team Providers Care Welder Production Line Gas Name Role Phone Nataliia (RETIRED) Ambrosio LUCAS Primary Care Provide r Unavailable Gordon Mireles Jr Unavailable [phone] Allergies Allergen (clinical drug ingredient) Drug/Non Drug Allergy documented on EMR Reaction Allergy Type Onset Date Status Penicillin Unknown Drug Allergy Active Results Component Value Reference Range Notes Pathology Reviewed date:04/02/2024 01:28:20 PM Interpretation: Performing Lab:[facility], [address] [place] [phone] Notes/Report: Reason For Referral No Information Medications Medication [...] Problem Status W/U Status Risk Notes Problem 811062066 Colon cancer screening (Z12.11) Active confirmed Problem 858697988 Long-term use of aspirin therapy (Z79.82) Active confirmed Problem 199000537 Personal history of colonic polyps (Z86.0100) Active confirmed Vital Signs Temperature 97.1 degrees Fahrenheit 01/29/2024 Blood pressure diastolic 00 mm Hg 01/29/2024 Height 5 ft 11 in in 01/29/2024 Blood pressure systolic 000 mm Hg 01/29/2024 Weight 164 lb 2 oz lbs 01/29/2024 BMI 22.89 kg/m2 01/29/2024 Encounters Encounter Location Date Provider Diagnosis [facility] [place] [address] [place] [phone] 03/31/2024 Gordon Mireles Jr Colon cancer screening Z12.11 and Colon polyps K63.5 [facility] [address] [place] [phone] 01/29/2024 Gordon Mireles Jr Colon cancer screening Z12.11 ; Long-term use of aspirin therapy Z79.82 and Personal history of colonic polyps Z86.0100 [facility] [address] [place] [phone] 02/04/2024 Gordon Mireles Jr [facility] [address] [place] [phone] 02/07/2024 Gordon Mireles Jr [facility] [address] [place] [phone] 04/02/2024 Gordon Mireles Jr Assessments Encounter Date [...] Insured Coverage Start Date Coverage End Date [employer] ([employer]) [id number] [place] [id number] ERNST GAYLE Self - patient is the insured Medical (General) History Medical History History ICD Code Colonoscopy 02/10, normal, f lea-year followup due to personal history of colon polyps. Coronary artery disease Hypothyroidism Hyperlipidemia Elevated PSA, prostate biopsy scheduled 02/17 Surgical History Surgery Date(Month/Year) CABG x3 2019
--- OUTSIDE RECORDS SUMMARY | 2024-11-27 07:12 | XMS_ITS | Clinical Summary ---
Author Organization [facility] [employer] Address [address] [place] [address] Phone Care Team Providers Care Slot Key Person Name Role Phone Ambrosio William MD Primary Care Provider [phone] Allergies Active Allergy Reactions Criticality Noted Date Comments Oxycodone Hcl 07/20/2020 Penicillins Rash Medium 01/28/2017 Medications levothyroxine sodium (TIROSINT) 100 mcg capsule Take 100 mcg by mouth daily. Active losartan (COZAAR) 25 mg tablet TAKE 1/2 TABLET DAILY *AUROBINDO * 45 tablet 1 5 Active aspirin 81 mg EC tabletIndicatio ns:Mixed hyperlipidemia, Atherosclerotic heart disease of [place] coronary artery without angina pectoris TAKE 1 TABLET BY MOUTH EVERY DAY 90 tablet 3 5 Active atorvastatin (LIPITOR) 80 mg tablet TAKE 1 TABLET DAILY 90 tablet 5 Active atorvastatin (LIPITOR) 80 mg tablet TAKE 1 TABLET DAILY 90 tablet 1 5 10/30/19 25 Discontinued Active Problems Problem Noted Date Diagnosed Date SOB (shortness of breath) 08/09/2021 Athscl heart disease of min[place] ve coronary artery w/o ang pctrs 07/20/2020 Cardiomyopathy (CMS/HCC V24, CMS/HCC V28) 2020 Assessment & Plan (02/14/2024 6:23 PM EST): Orders: ECG 12 lead Hypothyroidism 01/28/2017 Mixed hyperlipidemia 01/28/2017 Surgical History Surgery Date Site/Laterality Comments COLONOSCOPY 2001 PROCEDURE: H[place]ORICAL COL[place]OSCOPY; [place] [facility] [place] COLONOSCOPY 01/28/2017 PROCEDURE: HISTORICAL [...] Years (1 of 1 - PCV) 01/16/2010 Colorectal Cancer Screening: Colonoscopy 01/28/2022 01/28/2017 Cholesterol Screening (Lipid Panel) 02/03/2022 HIV Screening 02/03/2022 Hepatitis C Screening 02/03/2022 Social Influencers of Health Screening 02/03/2022 Hypertension/CHF/CAD Annual BMP Blood Test 02/04/2022 Depression Screening 02/26/2024 COVID-19 Vaccine ( season) 2024 12/06/2022, 03/07/2022, 12/24/2020, Additional history exists Influenza Vaccine (#1) 2024 12/10/2020 DTaP,Tdap,and Td Vaccines (2 - [...] no interpretation Anatomical Region Laterality Modality Other Historical Provider HEALTH MAINTENANCE Final Result from Last 3 Months or Most Recently Relevant to Health Maintenance Insurance [facility] Care Teams Slot Key Person Relationship Specialty Start Date End Date Ambrosio William MD [address] [place] [address] Dr Quyen [place] PCP - General 08/23/18
[2024-11-27 10:58] LABS: PSA,Total (Free>4and<10) 4.82 ng/mL (0.00-4.00)
[2024-11-30 13:58] LABS: Free Prostate Spec Ag 0.9 ng/mL; Percent Free Prostate Spec Ag 19 % (calc) (>25)
== END 2024-11-27 07:10 | disposition home or self-care (01) ==
LOC: HO.10HDL 07:09
PROVIDERS: Visit Provider Urology
DX: Z12.5 Encounter for screening for malignant neoplasm of prostate (principal); R97.20 Elevated prostate specific antigen [PSA]
CPT/HCPCS: 36415; 84153; 84154

== ENCOUNTER 2024-11-30 08:59 | Outpatient (AMB) | payer OTHER, SELFPAY ==
--- OUTSIDE RECORDS SUMMARY | 2023-09-18 05:20 | XMS_ITS ---
Author Organization [facility] Address [address] [place] [id number] Care Team Providers Care Bobj Developer Name Role Phone Nataliia (RETIRED) Ambrosio LUCAS Primary Care Provide r Frankie Mireles Jr, Gordon Unavailable REASON FOR VISIT Patient presents today for a screening colonoscopy Encounters Encounter Location Date Provider Diagnosis [facility] [address] [place] [phone] 09/18/2023 Gordon Mireles Jr Plan Of Treatment No Information Progress Notes * ERNST BHAGATDOB:[birth year] (64 yo M)Acc No.[id number]:09/18/2023 Progress Notes Patient: ERNST SANDS Provider: Marc Mireles MD :1960 A ge:63 Y S ex:Male Date:09/18/2023 Address:[address] [place], [place] [id number] Pcp:Ambrosio William (RETIRED )MD Subjective: * Chief Complaints: * 1 . Patient presents today for a screening colonoscopy. * Medical History: Objective: * Vitals: Assessment: Plan: * Treatment: * * The named appointment provid er may or may not be the originator of this progress note, and it is not deemed complete until electronically signed by the appointment provider. Sign off status: Pending * Provider: Marc Mireles MD Date: 0 09/18/2023 Generated for Daphne keita/Floridalma/Casiitting on: 09:56 AM EDT
--- OUTSIDE RECORDS SUMMARY | 2024-02-12 09:40 | XMS_ITS ---
Author Organization [facility] Address [address] [place] [address] Care Team Providers Care Operations Research Engineer Name Role Phone Nataliia (RETIRED) Ambrosio LUCAS Primary Care Provide r Frankie Mireles Jr, Gordon Unavailable REASON FOR VISIT screening Encounters Encounter Location Date Provider Diagnosis [facility] [address] [place] [phone] 02/12/2024 Gordon Mireles Jr Plan Of Treatment No Information Progress Notes * ERNST BHAGATDOB:[birth year] (64 yo M)Acc No.[id number]:02/12/2024 COLON WITH MAC Patient: ERNST SANDS Provider: Marc Mireles MD :1960 A ge:64 Y S ex:Male Date:02/12/2024 Address:[address] [place], [place] [phone] Pcp:Ambrosio William (RETIRED )MD Subjective: * Chief Complaints: * 1 . Screening. * Medical History: Objective: * Vitals: Assessment: Plan: * Treatment: * * The named appointment provid er may or may not be the originator of this progress note, and it is not deemed complete until electronically signed by the appointment provider. Sign off status: Pending * Provider: Marc Mireles MD Date: 1 04/14/2023 Generated for Daphne keita/Floridalma/eTvalerismitting on: 09:56 AM EDT
--- OUTSIDE RECORDS SUMMARY | 2024-03-31 05:10 | XMS_ITS ---
Author Organization [facility] Address [address] [place] [phone] Care Team Providers Care Shank Sander Name Role Phone Nataliia (RETIRED) Ambrosio LUCAS Primary Care Provide r Frankie Mireles Jr, Gordon Unavailable REASON FOR VISIT COLON SCREENING Encounters Encounter Location Date Provider Diagnosis [facility] [place] [place] Outpatient [address], [place] [phone] 03/31/2024 Gordon Mireles Jr Colon cancer screening Z12.11 and Colon polyps K63.5 Assessments Encounter Date Diagnosis (ICD Code) Assessment Notes Treatment Notes Treatment Clinical Notes Section Notes 03/31/2024 Colon cancer screening (ICD-10 - Z12.11) 03/31/2024 Colon polyps (ICD-10 - K63.5) Plan Of Treatment No Information Progress Notes * ERNST BHAGATDOB:[birth year] (64 yo M)Acc No.[id number]:03/31/2024 COLON WITH MAC Patient: ERNST SANDS Provider: Marc Mireles MD :1960 A ge:64 Y S ex:Male Date:03/31/2024 Address:[address] [place], [place] [id number] Pcp:Ambrosio William (RETIRED )MD Subjective: * Chief Complaints: * 1 . COLON SCREENING. * Medical History: Objective: * Vitals: Assessment: * Assessment: 1. C olon cancer screening - Z12.11 (Primary) 2 . C olon polyps - K63.5? Plan: * Treatment: * Procedure Codes: 4 5380 COLONOSCOPY AND BIOPSY, 0529F INTRVL 3+YRS PTS CLNSCP DOCD * * The named appointment provid er may or may not be the originator of this progress note, and it is not deemed complete until electronically signed by the appointment provider. Sign off status: Pending * Provider: Marc Mireles MD Date: 0 03/31/2024 Generated for Daphne keita/Floridalma/Higinio on: 09:56 AM EDT
--- NOTE | 2024-11-30 08:37 | A.OFFPC_ITS ---
Vital Signs 11/30/24 09:07 Height 5 ft 11 in Weight 163 lb BMI 22.7 BP 112/82 Blood Pressure Location Lt brachial Position Sitting Respiration 16 Pulse 73 Pulse Source Pulse Oximeter Temp 97.5 F Temp Source Temporal Artery Scan Pulse Oximetry (%) 99 Oxygen Delivery Method Room Air Intake Visit Reasons: Routine Energy Consultant Required: No Accompanied by: Self / Same As Patient Allergies penicillin V Allergy (Unknown, Verified 11/30/24 08:37) Rash acetaminophen (From Percocet) Adverse Reaction (Verified 11/30/24 08:37) Vomiting oxycodone (From Percocet) Adverse Reaction (Verified 11/30/24 08:37) Vomiting Tobacco use date assessed: 05/18/24 Dental Screening Dental Screen Date: 11/30/24 Did you have a dental visit in the last 12 months?: Yes Did you have a dental problem in the last 6 months where you did not have access to dental care?: No Was dental information given to patient?: Patient has dentist HPI HPI Comments History of Present Illness Details The patient is a 64-year-old male presenting for a wellness visit. During this visit, the patient and I reviewed his current medications, medical history, and any recent changes in his health status. He has a history of hypothyroidism, which he manages with levothyroxine. His essential hypertension is controlled with losartan. He also takes aspirin due to his coronary artery disease. The patient reported a history of hyperlipidemia, for which he is currently on atorvastatin. His dose was previously set at 80 mg but a reduction is being considered due to successful management of his cholesterol. The patient had open heart surgery in the past, which may have been related to his coronary artery disease. In recent assessments, the patient had a prostate biopsy following an elevated PSA, which returned a benign result, confirming benign prostatic hyperplasia. He does not use additional medication to manage prostate-related symptoms and denies any current urinary symptoms like difficulty voiding, diarrhea, or issues with bowel movements. His PSA has been relatively stable, with the most recent result being borderline. The patient leads an active lifestyle, reporting participation in pickleball, table tennis, and golf weekly. He denies any chest pain, shortness of breath, or palpitations and has no current concerns. Medical History: - Hypothyroidism, managed with levothyro xine - Essential Hypertension, managed with l osartan - Coronary Artery Disease, managed with aspirin - Hyperlipidemia, managed with atorvasta tin - Past elevated PSA with negative prosta te biopsy Surgical History: - Open heart surgery Medications: - Levothyroxine 100 mcg for hypothyroidi sm - Losartan 12.5 mg for hypertension - Aspirin for coronary artery disease - Atorvastatin 80 mg for hyperlipidemia Diagnostic Results: - Labs: PSA has been stable; recent valu e 4.82, previously at 4.23 - Tests: Prostate biopsy returned negati ve for malignancy Social History: - Quit smoking when his daughter was a antonette thomson, having smoked from his teenage years to early 20s - Engages in regular physical activity: plays pickleball four days a week, table tennis two days a week, and golf once a week [facility] Medical History (Updated 11/30/24 @ 09:32 by Eros Leger MD) BPH (benign prostatic hyperplasia) CAD (coronary artery disease) HLD (hyperlipidemia) Hypothyroidism HTN (hypertension) Herniated disc Surgical History (Updated 06/19/24 @ 09:26 by Melvi Cary) Hx of colonoscopy (03/31/24) Hx of coronary artery bypass graft (2018) Family History (Updated 05/18/24 @ 16:11 by Mariajose Burdick MA) Mother Brain cancer Father Cardiac arrest Social History Housing: House Are you a primary childcare attendant to a significant other at home: No Do you presently have visiting nurse or other home services: No Patient Tobacco Use Status: Former Tobacco user Years Smoked: 10-15 years e-Cigarette/Vaping Use: Never Used service: No Current occupational status: retired Cognitive needs: No Hearing needs: No Vision needs: Yes (rx glasses) Questionnaire Thrive Questionnaire Date Thrive assessed: 05/18/24 AUDIT C Alcohol Use Questionnaire (AUDIT-C) 1. How often do you have a drink containing alcohol?: Never 3. How often do you have six or more drinks on one occasion?: Never Total Score: 0 DASHA-7 AMB Questionnaire DASHA-7 Date DASHA - 7 assessed: 05/18/24 Source: Developed by Drs. Tahir Gillespie, Alla Steven, Parker Powell and colleagues, with an educational clifford from [employer]. Review of Systems Const Details: - Cardiovascular: Denies chest pain, shortness of breath, or palpitations - Genitourinary: Denies urinary issues and diarrhea All systems reviewed & are unremarkable except as reviewed in HPI and above Physical exam (Primary Care) Vital Signs: Last Vital Signs Temp 97.5 F 11/30/24 09:07 Pulse 73 11/30/24 09:07 Resp 16 11/30/24 09:07 BP 112/82 11/30/24 09:07 Pulse Ox 99 11/30/24 09:07 Oxygen Delivery Method Room Air 11/30/24 09:07 BMI result Body Mass Index 22.7 Tobacco/Smoking Status: Tobacco use Status Tobacco use date assessed 05/18/24 11/30/24 08:38 Patient Tobacco Use Status Former Tobacco user 11/30/24 09:09 Tobacco use type 05/18/24 16:32 e-Cigarette/Vaping Use Never Used 11/30/24 08:38 Thrive Assessment: Date of Thrive Assessment Date Thrive assessed 05/18/24 11/30/24 08:38 Const Other: General: Alert and oriented, Well nourished, No acute distress. Eye: Pupils are equal, round and reactive to light, Intact accommodation, Extraocular movements are intact, Normal conjunctiva, Vision unchanged. HENT: Normocephalic, Atraumatic, Tympanic membranes are clear, Normal hearing, Oral mucosa is moist, No pharyngeal erythema, Ear canals patent. Respiratory: Lungs CTA bilaterally, No wheeze, Respirations are non-labored. Cardiovascular: Regular rate, Regular rhythm, S1 auscultated, S2 auscultated, No murmur, Good pulses equal in all extremities, Normal peripheral perfusion, No edema. Gastrointestinal: Soft, Non-tender, Non-distended, Normal bowel sounds, No organomegaly. Musculoskeletal: Normal range of motion, Normal strength, No tenderness, No swelling, No deformity, Normal gait. Integumentary: Warm, Dry, [place], Intact. Neurologic: Alert, Oriented, Normal sensory, Normal motor function, No focal defects, Cranial Nerves II-XII are grossly intact, Normal deep tendon reflexes. Psychiatric: Cooperative, Appropriate mood & affect, Normal judgment. Coding Level of Care Code Est Pt Level 4 (56983) Complex EM visit Add On G2211 Diagnoses Primary hypertension I10 Hypertension type: primary hypertension Other hyperlipidemia E78.49 Hyperlipidemia type: other hyperlipidemia Coronary artery disease involving [place] coronary artery of [place] heart without angina pectoris I25.10 Associated angina: without angina Coronary Disease-Associated Artery/Lesion type: [place] artery [place] vs. transplanted heart: [place] heart Benign prostatic hyperplasia without lower urinary tract symptoms N40.0 Lower urinary tract symptom presence: symptoms absent Hypothyroidism, unspecified type E03.9 Hypothyroidism type: unspecified Assessment & Plan Assessment & Plan (1) HTN (hypertension): Comment: - Continue current treatment with losartan. Code(s): I10 - Essential (primary) hypertension Category: Medical Qualifiers: Hypertension type: primary hypertension Qualified Code(s): I10 - Essential (primary) hypertension (2) HLD (hyperlipidemia): Comment: - Consider reducing atorvastatin from 80 mg to 40 mg due to current good control. - Plan to re-evaluate lipid levels in conjunction with future blood work. Code(s): E78.5 - Hyperlipidemia, unspecified Category: Medical Qualifiers: Hyperlipidemia type: other hyperlipidemia Qualified Code(s): E78.49 - Other hyperlipidemia (3) CAD (coronary artery disease): Comment: - Continue low-dose aspirin therapy. Code(s): I25.10 - Atherosclerotic heart disease of [place] coronary artery without angina pectoris Category: Medical Qualifiers: Associated angina: without angina Coronary Disease-Associated Artery/Lesion type: [place] artery [place] vs. transplanted heart: [place] heart Qualified Code(s): I25.10 - Atherosclerotic heart disease of [place] coronary artery without angina pectoris (4) BPH (benign prostatic hyperplasia): Comment: - No current treatment required. Continue monitoring PSA levels, given recent stability and past negative biopsy. Code(s): N40.0 - Benign prostatic hyperplasia without lower urinary tract symptoms Category: Medical Qualifiers: Lower urinary tract symptom presence: symptoms absent Qualified Code(s): N40.0 - Benign prostatic hyperplasia without lower urinary tract symptoms (5) Hypothyroidism: Comment: - Continue current dose of levothyroxine. Code(s): E03.9 - Hypothyroidism, unspecified Category: Medical Qualifiers: Hypothyroidism type: unspecified Qualified Code(s): E03.9 - Hypothyroidism, unspecified Plan: Health care maintenance: - Annual lab work planned prior to the next visit to monitor cholesterol, blood sugar, and thyroid function - Reduce atorvastatin dose due to current stable cholesterol levels Patient was informed and verbally consented to the use of an ambient scribe for clinic note documentation during this visit. Plan I discussed with the patient his current health status and management plans, particularly focusing on maintaining his cholesterol within target levels and the potential reduction in atorvastatin dosage due to stable readings. We reviewed the importance of continued medication adherence for his chronic conditions, especially coronary artery disease and hypertension. The patient was informed of the plan to conduct routine blood work prior to his next visit in approximately five months, including a re-evaluation of lipids and thyroid function. We also touched upon lifestyle maintenance, particularly his benefici al engagement in physical activities. Orders: Orders Complete Blood Count Auto Diff 5 Months E03.9 - Hypothyroidism, unspecified, E78.49 - Other hyperlipidemia, I10 - Essential (primary) hypertension Comprehensive Met. Panel 5 Months E03.9 - Hypothyroidism, unspecified, E78.49 - Other hyperlipidemia, I10 - Essential (primary) hypertension Hemoglobin A1c 5 Months E03.9 - Hypothyroidism, unspecified, E78.49 - Other hyperlipidemia, I10 - Essential (primary) hypertension Lipid Panel 5 Months E03.9 - Hypothyroidism, unspecified, E78.49 - Other hyperlipidemia, I10 - Essential (primary) hypertension TSH reflex Free T4 5 Months E03.9 - Hypothyroidism, unspecified, E78.49 - Other hyperlipidemia, I10 - Essential (primary) hypertension Medications: New atorvastatin (Lipitor) 40 mg PO BEDTIME 90 tabs 3RF 90 days Patient Instructions: - Continue all current medications as prescribed. - Anticipate atorvastatin dose reduction; confirm effect with next lab results. - Complete blood tests approximately one week before the next visit. - Maintain physical activity routine. - Reach out for any new symptoms, particularly chest pain or urinary issues.
[2024-11-30 09:07] VITALS: BP 112/82; PULSE 73; RESP 16; TEMP 36.4; O2SAT 99; BMI 22.7
--- OUTSIDE RECORDS SUMMARY | 2024-11-30 09:56 | XMS_ITS | Patient Health Record ---
Author Organization [facility] Address [address] [place] [phone] Care Team Providers Care Corn Breeder Name Role Phone Nataliia (RETIRED) Ambrosio LUCAS Primary Care Provide r Unavailable Gordon Mireles Jr Unavailable Allergies Allergen (clinical drug ingredient) Drug/Non Drug Allergy documented on EMR Reaction Allergy Type Onset Date Status Penicillin Unknown Drug Allergy Active Results Component Value Reference Range Notes Pathology Reviewed date:04/02/2024 01:28:20 PM Interpretation: Performing Lab:[facility], [address] [place] [id number] Notes/Report: Reason For Referral No Information Medications [...] Problem Status W/U Status Risk Notes Problem 413458237 Colon cancer screening (Z12.11) Active confirmed Problem 628790291 Long-term use of aspirin therapy (Z79.82) Active confirmed Problem [id number] Personal history of colonic polyps (Z86.0100) Active confirmed Vital Signs Temperature 97.1 degrees Fahrenheit 01/29/2024 Blood pressure diastolic 00 mm Hg 01/29/2024 Height 5 ft 11 in in 01/29/2024 Blood pressure systolic 000 mm Hg 01/29/2024 Weight 164 lb 2 oz lbs 01/29/2024 BMI 22.89 kg/m2 01/29/2024 Encounters Encounter Location Date Provider Diagnosis [facility] [place] [address] [place] [id number] 03/31/2024 Gordon Mireles Jr Colon cancer screening Z12.11 and Colon polyps K63.5 [facility] [address] [place] [phone] 01/29/2024 Gordon Mireles Jr Colon cancer screening Z12.11 ; Long-term use of aspirin therapy Z79.82 and Personal history of colonic polyps Z86.0100 [facility] [address] [place] [phone] 02/04/2024 Gordon Mireles Jr [facility] [address] [place] [phone] 02/07/2024 Gordon Mireles Jr [facility] [address] [place] [phone] 04/02/2024 Gordon Mireles Jr Assessments Encounter Date [...] Insured Coverage Start Date Coverage End Date [employer] ([employer]) [id number] [place] [id number] ERNST GAYLE Self - patient is the insured Medical (General) History Medical History History ICD Code Colonoscopy 02/10, normal, f lea-year followup due to personal history of colon polyps. Coronary artery disease Hypothyroidism Hyperlipidemia Elevated PSA, prostate biopsy scheduled 02/17 Surgical History Surgery Date(Month/Year) CABG x3 2019
--- OUTSIDE RECORDS SUMMARY | 2024-11-30 09:56 | XMS_ITS | Clinical Summary ---
Author Organization [facility] Address [address] [place] [address] Phone Care Team Providers Care Edge Drummer Name Role Phone Ambrosio William MD Primary Care Provider [phone] Allergies Active Allergy Reactions Criticality Noted Date Comments Oxycodone Hcl 07/20/2020 Penicillins Rash Medium 01/28/2017 Medications levothyroxine sodium (TIROSINT) 100 mcg capsule Take 100 mcg by mouth daily. Active losartan (COZAAR) 25 mg tablet TAKE 1/2 TABLET DAILY *AUROBINDO* 45 tablet 1 08/03/2024 Active aspirin 81 mg EC tabletIndication s:Mixed hyperlipidemia,A therosclerotic heart disease of [place] coronary artery without angina pectoris TAKE 1 TABLET BY MOUTH EVERY DAY 90 tablet 3 08/25/2024 Active atorvastatin (LIPITOR) 80 mg tablet TAKE 1 TABLET DAILY 90 tablet 10/29/2024 Active Active Problems Problem Noted Date Diagnosed [...] Anatomical Region Laterality Modality Other Historical Provider MD HEALTH MAINTENANCE Final Result from Last 3 Months or Most Recently Relevant to Health Maintenance Insurance [employer] [place] [id number] Care Teams Edge Drummer Relationship Specialty Start Date End Date Ambrosio William MD [address] [place] [address] Dr Quyen MA PCP - General 08/23/18
== END 2024-11-30 09:20 | disposition home or self-care (01) ==
PROVIDERS: PCP Student in an Organized Health Care Education/Training Program; Visit Provider Student in an Organized Health Care Education/Training Program
DX: I10 Essential (primary) hypertension (principal); E78.49 Other hyperlipidemia; I25.10 Atherosclerotic heart disease of native coronary artery without angina pectoris; N40.0 Benign prostatic hyperplasia without lower urinary tract symptoms; E03.9 Hypothyroidism, unspecified